=== PATIENT | female | born 1955 | race Hispanic/Latino ===

== ENCOUNTER 2022-09-14 23:36 | Inpatient (IN) | payer MEDICARE ==
[~2022-09-14] VITALS: Ht 152.4 cm; Wt 70.3 kg
[~2022-09-14 23:36] MED LIST: CHOL5POW MC; LACT10SO9 PO
[2022-09-15] MEDS ORDERED: LACTATED RINGERS 1000ML 1,000 ML IV ONE
[2022-09-15] MEDS ORDERED: ONDANSETRON 4MG INJ IVP ONE (00:30)
[2022-09-15] MEDS ORDERED: MORPHINE 2 MG SYG IVP ONE (00:30)
[2022-09-15 00:38] LABS: CARBON DIOXIDE 26 mmol/L (21-32); CHLORIDE 99 mmol/L (101-111); CREATININE 0.6 mg/dL (0.5-1.5); GLOMERULAR FILTR. RATE CALC 106 mL/min (>60); GLUCOSE,RANDOM 121 mg/dL (70-105); POTASSIUM 4.1 mmol/L (3.5-5.1); SODIUM SERUM 133 mmol/L (136-145); UREA NITROGEN, BLOOD 11 mg/dL (7-18)
[2022-09-15 00:40] LABS: APPEARANCE,URINE CLEAR (CLEAR); BASOPHILS % (AUTO) 0.5 % (0.0-5.0); BILIRUBIN,URINE 10 mg/dL (NEGATIVE); COLOR,URINE DARK-YELLOW (YELLOW); EOSINOPHILS % (AUTO) 1.3 % (0.0-8.0); GLUCOSE, URINE (UA) NEGATIVE (NEGATIVE); HEMATOCRIT 32.8 % (36-48); INR 1.62 (0.85-1.15); KETONES,URINE NEGATIVE (NEGATIVE); LEUKOCYTE ESTERASE ,URINE 25 Leu/uL (NEGATIVE); MEAN CORPUSCULAR HGB CONC 34.1 g/dL (32.0-36.0); MEAN CORPUSCULAR VOLUME 87.9 fL (79-99); MONOCYTES % (AUTO) 10.5 % (3.0-13.0); NEUTROPHILS % (AUTO) 74.9 % (40.0-77.0); NITRATE,URINE NEGATIVE (NEGATIVE); OCCULT BLOOD,URINE NEGATIVE (NEGATIVE); PLATELET COUNT (AUTO) 187 K/uL (130-400); PROTEIN,URINE NEGATIVE (NEGATIVE); PROTHROMBIN TIME 17.2 SEC (9.6-11.6); RED BLOOD CELL COUNT(AUTO) 3.73 MIL/uL (4.00-5.50); RED CELL DISTRIBUTION WIDTH 21.2 % (11.0-15.5); UROBILINOGEN,URINE 0.2 mg/dL (0.2-1.0)
[2022-09-15 00:41] LABS: PARTIAL THROMBOPLASTIN TIME 32.4 SEC (26.3-35.5)
[2022-09-15 00:43] LABS: BACTERIA,URINE RARE /HPF (None Seen); RBC,URINE 0-1 /HPF (0-1); SQUAMOUS EPITHELIAL CELL,UR RARE /HPF (0-2)
[2022-09-15 01:00] LABS: ALANINE AMINOTRANSFERASE 241 U/L (12-78); ALBUMIN 2.4 g/dL (3.5-5.0); ASPARTATE AMINOTRANSFERASE 207 U/L (10-37); GAMMA GLUTAMYL TRANSFERASE 521 U/L (5-85); LIPASE 51 U/L (114-286)
[2022-09-15 01:07] LABS: AMMONIA < 10 umol/L (11-32)
[2022-09-15 01:28] LABS: TOTAL PROTEIN, SERUM 6.3 g/dL (6.0-8.3)
[2022-09-15 01:56] LABS: PLATELET MORPHOLOGY PLT CLUMPS PRESENT
[2022-09-15] MEDS ORDERED: NITROGLYCERIN 0.4 MG SL TAB SL PRN (04:00)
[2022-09-15] MEDS ORDERED: ACETAMINOPHEN 325 MG TAB PO PRN (04:00)
[2022-09-15] MEDS ORDERED: GUAIFENESIN-DM 200/20 MG 10 ML PO PRN (04:00)
[2022-09-15] MEDS ORDERED: LACTULOSE 20 GM/30 ML UDCUP PO PRN (04:00)
[2022-09-15] MEDS ORDERED: CEFTRIAXONE 1G VIAL IVP SCH (04:00)
[2022-09-15 05:15] VITALS: BP 105/52
[2022-09-15 08:00] VITALS: BP 156/51
[2022-09-15] MEDS: FAMOTIDINE 20MG VIAL IV SCH ×2 (08:09→22:11)
[2022-09-15] MEDS ORDERED: FAMOTIDINE 20MG VIAL IV SCH (09:00)
[2022-09-15 12:00] VITALS: BP 95/58
[2022-09-15 16:00] VITALS: BP 115/70
[2022-09-15 20:00] VITALS: BP 101/59
[2022-09-16] VITALS (20 sets, daily range): BP systolic 94–114; BP diastolic 50–64
[2022-09-16 06:05] LABS: BASOPHILS % (AUTO) 0.5 % (0.0-5.0); EOSINOPHILS % (AUTO) 1.1 % (0.0-8.0); LYMPHOCYTES % (AUTO) 10.9 % (21.0-51.0); MEAN CORPUSCULAR HEMOGLOBIN 29.7 pg (27.0-33.0); MEAN CORPUSCULAR HGB CONC 32.9 g/dL (32.0-36.0); MEAN CORPUSCULAR VOLUME 90.4 fL (79-99); MONOCYTES % (AUTO) 10.8 % (3.0-13.0); NEUTROPHILS % (AUTO) 75.2 % (40.0-77.0); PLATELET COUNT (AUTO) 162 K/uL (130-400); RED BLOOD CELL COUNT(AUTO) 3.43 MIL/uL (4.00-5.50); RED CELL DISTRIBUTION WIDTH 21.2 % (11.0-15.5); WHITE BLOOD COUNT (AUTO) 9.9 K/uL (4.8-10.8)
[2022-09-16 06:18] LABS: INR 1.55 (0.85-1.15); PROTHROMBIN TIME 16.5 SEC (9.6-11.6)
[2022-09-16 06:34] LABS: ALBUMIN 1.9 g/dL (3.5-5.0); CREATININE 0.5 mg/dL (0.5-1.5); POTASSIUM 3.5 mmol/L (3.5-5.1); TOTAL PROTEIN, SERUM 5.6 g/dL (6.0-8.3)
[2022-09-16] MEDS: FAMOTIDINE 20MG VIAL IV SCH (08:01)
[2022-09-16 09:39] LABS: % IRON SATURATION 17.9 % (22-44)
[2022-09-16] MEDS: 0.9%NACL 1000ML 1,000 ML IV SCH ×2 (11:30→17:26)
[2022-09-16] MEDS: ZOSYN 3.375GM +NS 50ML IVPB SCH ×2 (13:00→20:05)
[2022-09-16] MEDS ORDERED: LIDOCAINE PF 100MG/5ML (2%) SYRINGE 5ML ONE (15:55)
[2022-09-16] MEDS ORDERED: PROPOFOL 10 MG/ML 20ML VIAL IV ONE (15:55)
[2022-09-16] MEDS: PANTOPRAZOLE 40 MG/VIAL IVP SCH (17:26)
[2022-09-17] VITALS: BP 98/54
[2022-09-17 04:00] VITALS: BP 104/54
[2022-09-17] MEDS: ZOSYN 3.375GM +NS 50ML IVPB SCH ×3 (04:59→20:40)
[2022-09-17 06:11] LABS: BASOPHILS % (AUTO) 0.4 % (0.0-5.0); EOSINOPHILS % (AUTO) 1.2 % (0.0-8.0); HEMATOCRIT 30.9 % (36-48); MEAN CORPUSCULAR HEMOGLOBIN 29.7 pg (27.0-33.0); MEAN CORPUSCULAR HGB CONC 32.7 g/dL (32.0-36.0); MEAN CORPUSCULAR VOLUME 90.9 fL (79-99); MONOCYTES % (AUTO) 8.7 % (3.0-13.0); NEUTROPHILS % (AUTO) 75.5 % (40.0-77.0); PLATELET COUNT (AUTO) 177 K/uL (130-400); RED CELL DISTRIBUTION WIDTH 21.2 % (11.0-15.5); WHITE BLOOD COUNT (AUTO) 9.4 K/uL (4.8-10.8)
[2022-09-17 06:52] LABS: ALBUMIN 1.8 g/dL (3.5-5.0); CREATININE 0.5 mg/dL (0.5-1.5); POTASSIUM 3.5 mmol/L (3.5-5.1); TOTAL PROTEIN, SERUM 5.4 g/dL (6.0-8.3)
[2022-09-17] MEDS ORDERED: POTASSIUM CHLORIDE 10% ELIXIR 20 MEQ/15 ML UDCUP PO PRN (07:00)
[2022-09-17 07:30] VITALS: BP 91/54
[2022-09-17] MEDS ORDERED: POTASSIUM CHLORIDE 20MEQ/100ML 100 ML IV PRN (08:00)
[2022-09-17] MEDS ORDERED: MAGNESIUM 2GM PREMIX 50ML 50 ML IV PRN (09:00)
[2022-09-17] MEDS: PANTOPRAZOLE 40 MG/VIAL IVP SCH (09:39)
[2022-09-17] MEDS: HYDROXYZINE 25 MG TABLET PO PRN (11:26)
[2022-09-17 11:30] VITALS: BP 111/61
[2022-09-17 15:30] VITALS: BP 106/56
[2022-09-17 20:00] VITALS: BP 97/58
[2022-09-17] MEDS ORDERED: MORPHINE 2 MG SYG IVP PRN (23:00)
[2022-09-17] MEDS: KETOROLAC 15MG/ML VIAL (15MG/ML) IM PRN (23:05)
[2022-09-18] VITALS: BP 152/63
[2022-09-18] MEDS: 0.9%NACL 1000ML 1,000 ML IV SCH ×2 (00:30→20:07)
[2022-09-18 04:00] VITALS: BP 122/56
[2022-09-18] MEDS: ZOSYN 3.375GM +NS 50ML IVPB SCH ×3 (05:12→20:07)
[2022-09-18 05:57] LABS: BASOPHILS % (AUTO) 0.4 % (0.0-5.0); EOSINOPHILS % (AUTO) 1.2 % (0.0-8.0); HEMATOCRIT 29.6 % (36-48); LYMPHOCYTES % (AUTO) 12.1 % (21.0-51.0); MEAN CORPUSCULAR HEMOGLOBIN 29.4 pg (27.0-33.0); MEAN CORPUSCULAR HGB CONC 33.1 g/dL (32.0-36.0); MEAN CORPUSCULAR VOLUME 88.9 fL (79-99); MONOCYTES % (AUTO) 11.7 % (3.0-13.0); NEUTROPHILS % (AUTO) 73.1 % (40.0-77.0); PLATELET COUNT (AUTO) 164 K/uL (130-400); RED BLOOD CELL COUNT(AUTO) 3.33 MIL/uL (4.00-5.50); RED CELL DISTRIBUTION WIDTH 20.6 % (11.0-15.5); WHITE BLOOD COUNT (AUTO) 7.5 K/uL (4.8-10.8)
[2022-09-18 06:20] LABS: ALBUMIN 1.7 g/dL (3.5-5.0); CREATININE 0.8 mg/dL (0.5-1.5); POTASSIUM 3.5 mmol/L (3.5-5.1); TOTAL PROTEIN, SERUM 5.4 g/dL (6.0-8.3)
[2022-09-18] MEDS: PANTOPRAZOLE 40 MG/VIAL IVP SCH (08:14)
[2022-09-18] MEDS: KETOROLAC 15MG/ML VIAL (15MG/ML) IM PRN (08:14)
[2022-09-18 08:43] VITALS: BP 112/57
[2022-09-18 11:41] VITALS: BP 108/65
[2022-09-18 16:17] VITALS: BP 100/53
[2022-09-18 19:00] VITALS: BP 113/62
[2022-09-18] MEDS: HYDROXYZINE 25 MG TABLET PO PRN (21:32)
[2022-09-18] MEDS: MAG/ALUM/SIMETH 30 ML UDCUP PO PRN (21:32)
[2022-09-19] VITALS (28 sets, daily range): BP systolic 90–141; BP diastolic 47–66
[2022-09-19] MEDS: ZOSYN 3.375GM +NS 50ML IVPB SCH ×3 (04:43→21:00)
[2022-09-19 05:29] LABS: BASOPHILS % (AUTO) 0.3 % (0.0-5.0); HEMATOCRIT 29.2 % (36-48); LYMPHOCYTES % (AUTO) 11.6 % (21.0-51.0); MEAN CORPUSCULAR HGB CONC 33.6 g/dL (32.0-36.0); MEAN CORPUSCULAR VOLUME 89.3 fL (79-99); MONOCYTES % (AUTO) 10.1 % (3.0-13.0); NEUTROPHILS % (AUTO) 75.5 % (40.0-77.0); PLATELET COUNT (AUTO) 169 K/uL (130-400); RED BLOOD CELL COUNT(AUTO) 3.27 MIL/uL (4.00-5.50); RED CELL DISTRIBUTION WIDTH 20.4 % (11.0-15.5); WHITE BLOOD COUNT (AUTO) 8.8 K/uL (4.8-10.8)
[2022-09-19 05:52] LABS: ALBUMIN 1.7 g/dL (3.5-5.0); CREATININE 0.6 mg/dL (0.5-1.5); MAGNESIUM 1.8 mg/dL (1.80-2.40); POTASSIUM 3.3 mmol/L (3.5-5.1); TOTAL PROTEIN, SERUM 5.2 g/dL (6.0-8.3)
[2022-09-19] MEDS: LIDOCAINE HCL-MPF 1% 2ML VIAL IV PRN ×2 (06:41→10:14)
[2022-09-19] MEDS: 0.9%NACL 1000ML 1,000 ML IV SCH ×2 (07:00→11:30)
[2022-09-19] MEDS ORDERED: POTASSIUM CHLORIDE 20 MEQ/100 ML BAG IV SCH (09:00)
[2022-09-19] MEDS: PANTOPRAZOLE 40 MG/VIAL IVP SCH (10:05)
[2022-09-19] MEDS ORDERED: PROPOFOL 10 MG/ML 20ML VIAL IV ONE (12:18)
[2022-09-19] MEDS ORDERED: LIDOCAINE PF 100MG/5ML (2%) SYRINGE 5ML ONE (12:19)
[2022-09-19] MEDS: MAGNESIUM 2GM PREMIX 50ML 50 ML IV SCH (17:14)
[2022-09-19] MEDS: MAG/ALUM/SIMETH 30 ML UDCUP PO PRN (23:03)
[2022-09-20 04:00] VITALS: BP 92/48
[2022-09-20 05:11] LABS: BASOPHILS % (AUTO) 0.2 % (0.0-5.0); EOSINOPHILS % (AUTO) 1.5 % (0.0-8.0); HEMATOCRIT 30.2 % (36-48); LYMPHOCYTES % (AUTO) 13.3 % (21.0-51.0); MEAN CORPUSCULAR HGB CONC 32.8 g/dL (32.0-36.0); MEAN CORPUSCULAR VOLUME 91.5 fL (79-99); MONOCYTES % (AUTO) 10.9 % (3.0-13.0); NEUTROPHILS % (AUTO) 72.7 % (40.0-77.0); PLATELET COUNT (AUTO) 179 K/uL (130-400); RED CELL DISTRIBUTION WIDTH 19.9 % (11.0-15.5); WHITE BLOOD COUNT (AUTO) 8.8 K/uL (4.8-10.8)
[2022-09-20] MEDS: ZOSYN 3.375GM +NS 50ML IVPB SCH ×3 (05:16→21:06)
[2022-09-20 05:34] LABS: ALBUMIN 1.7 g/dL (3.5-5.0); CREATININE 0.6 mg/dL (0.5-1.5); MAGNESIUM 2.5 mg/dL (1.80-2.40); POTASSIUM 3.6 mmol/L (3.5-5.1); TOTAL PROTEIN, SERUM 5.3 g/dL (6.0-8.3)
[2022-09-20] MEDS: PANTOPRAZOLE 40 MG/VIAL IVP SCH (07:45)
[2022-09-20 08:00] VITALS: BP 101/53
[2022-09-20] MEDS ORDERED: LIDOCAINE HCL 1% 20 ML VIAL ONE (12:36)
[2022-09-20 16:00] VITALS: BP 104/47
[2022-09-20 20:26] VITALS: BP 106/60
[2022-09-20] MEDS: MAG/ALUM/SIMETH 30 ML UDCUP PO PRN (21:06)
[2022-09-20] MEDS: KCL 20 MEQ ERTAB PO PRN ×2 (21:13→23:20)
[2022-09-20] MEDS: 0.9%NACL 1000ML 1,000 ML IV SCH (23:20)
[2022-09-20 23:25] VITALS: BP 123/61
[2022-09-21 04:12] VITALS: BP 105/53
[2022-09-21] MEDS: ZOSYN 3.375GM +NS 50ML IVPB SCH ×3 (04:43→20:17)
[2022-09-21 06:17] LABS: BASOPHILS % (AUTO) 0.5 % (0.0-5.0); EOSINOPHILS % (AUTO) 0.8 % (0.0-8.0); HEMATOCRIT 30.5 % (36-48); LYMPHOCYTES % (AUTO) 16.3 % (21.0-51.0); MEAN CORPUSCULAR HEMOGLOBIN 29.9 pg (27.0-33.0); MEAN CORPUSCULAR HGB CONC 32.8 g/dL (32.0-36.0); MEAN CORPUSCULAR VOLUME 91.3 fL (79-99); MONOCYTES % (AUTO) 10.1 % (3.0-13.0); NEUTROPHILS % (AUTO) 70.8 % (40.0-77.0); PLATELET COUNT (AUTO) 176 K/uL (130-400); RED BLOOD CELL COUNT(AUTO) 3.34 MIL/uL (4.00-5.50); RED CELL DISTRIBUTION WIDTH 19.8 % (11.0-15.5); WHITE BLOOD COUNT (AUTO) 8.6 K/uL (4.8-10.8)
[2022-09-21 06:26] LABS: INR 1.25 (0.85-1.15); PROTHROMBIN TIME 13.5 SEC (9.6-11.6)
[2022-09-21 06:27] LABS: PARTIAL THROMBOPLASTIN TIME 29.1 SEC (26.3-35.5)
[2022-09-21 06:34] LABS: POTASSIUM 4.1 mmol/L (3.5-5.1)
[2022-09-21 06:53] LABS: ALBUMIN 1.7 g/dL (3.5-5.0); CREATININE 0.5 mg/dL (0.5-1.5); MAGNESIUM 2.1 mg/dL (1.80-2.40); TOTAL PROTEIN, SERUM 5.4 g/dL (6.0-8.3)
[2022-09-21 07:00] VITALS: BP 118/52
[2022-09-21] MEDS: 0.9%NACL 1000ML 1,000 ML IV SCH (07:00)
[2022-09-21] MEDS ORDERED: IOHEXOL-350 50ML VIAL IV ONE (07:32)
[2022-09-21] MEDS ORDERED: PROPOFOL 10 MG/ML 20ML VIAL IV ONE (08:12)
[2022-09-21] MEDS ORDERED: EPINEPHRINE PF 1MG (1:1,000) 1 MG/ML AMP ONE (08:33)
[2022-09-21] MEDS: PANTOPRAZOLE 40 MG/VIAL IVP SCH (10:32)
[2022-09-21 12:00] VITALS: BP 118/65
[2022-09-21 16:00] VITALS: BP 125/60
[2022-09-21 20:00] VITALS: BP 113/61
[2022-09-21 23:39] VITALS: BP 101/55
[2022-09-22 04:00] VITALS: BP 99/52
[2022-09-22] MEDS: ZOSYN 3.375GM +NS 50ML IVPB SCH ×3 (04:38→21:07)
[2022-09-22] MEDS: 0.9%NACL 1000ML 1,000 ML IV SCH (04:39)
[2022-09-22 06:04] LABS: BASOPHILS % (AUTO) 0.5 % (0.0-5.0); EOSINOPHILS % (AUTO) 1.2 % (0.0-8.0); HEMATOCRIT 30.5 % (36-48); LYMPHOCYTES % (AUTO) 12.6 % (21.0-51.0); MEAN CORPUSCULAR HEMOGLOBIN 30.5 pg (27.0-33.0); MEAN CORPUSCULAR HGB CONC 33.1 g/dL (32.0-36.0); MEAN CORPUSCULAR VOLUME 92.1 fL (79-99); NEUTROPHILS % (AUTO) 73.3 % (40.0-77.0); PLATELET COUNT (AUTO) 180 K/uL (130-400); RED BLOOD CELL COUNT(AUTO) 3.31 MIL/uL (4.00-5.50); RED CELL DISTRIBUTION WIDTH 19.6 % (11.0-15.5); WHITE BLOOD COUNT (AUTO) 8.4 K/uL (4.8-10.8)
[2022-09-22 06:42] LABS: ALBUMIN 1.6 g/dL (3.5-5.0); CREATININE 0.6 mg/dL (0.5-1.5); POTASSIUM 3.7 mmol/L (3.5-5.1); TOTAL PROTEIN, SERUM 5.3 g/dL (6.0-8.3)
[2022-09-22] MEDS: KCL 20 MEQ ERTAB PO PRN ×2 (06:57→12:31)
[2022-09-22 08:00] VITALS: BP 118/55
[2022-09-22] MEDS: PANTOPRAZOLE 40 MG/VIAL IVP SCH (09:08)
[2022-09-22 12:00] VITALS: BP 101/56
[2022-09-22 16:00] VITALS: BP 110/60
[2022-09-22 19:00] VITALS: BP 116/64
[2022-09-22] MEDS: MAG/ALUM/SIMETH 30 ML UDCUP PO PRN (21:14)
[2022-09-23] VITALS: BP 109/55
[2022-09-23] MEDS: ZOSYN 3.375GM +NS 50ML IVPB SCH ×3 (03:16→20:26)
[2022-09-23 04:00] VITALS: BP 103/46
[2022-09-23 05:28] LABS: BASOPHILS % (AUTO) 0.4 % (0.0-5.0); EOSINOPHILS % (AUTO) 1.2 % (0.0-8.0); HEMATOCRIT 30.3 % (36-48); LYMPHOCYTES % (AUTO) 15.4 % (21.0-51.0); MEAN CORPUSCULAR HEMOGLOBIN 30.3 pg (27.0-33.0); MEAN CORPUSCULAR VOLUME 91.8 fL (79-99); MONOCYTES % (AUTO) 11.6 % (3.0-13.0); NEUTROPHILS % (AUTO) 69.9 % (40.0-77.0); PLATELET COUNT (AUTO) 179 K/uL (130-400); RED CELL DISTRIBUTION WIDTH 19.2 % (11.0-15.5); WHITE BLOOD COUNT (AUTO) 9.1 K/uL (4.8-10.8)
[2022-09-23 05:56] LABS: ALBUMIN 1.7 g/dL (3.5-5.0); CREATININE 0.6 mg/dL (0.5-1.5); MAGNESIUM 1.9 mg/dL (1.80-2.40); POTASSIUM 3.6 mmol/L (3.5-5.1); TOTAL PROTEIN, SERUM 5.3 g/dL (6.0-8.3)
[2022-09-23] MEDS: KCL 20 MEQ ERTAB PO PRN ×2 (06:30→20:26)
[2022-09-23] MEDS: MAGNESIUM 2GM PREMIX 50ML 50 ML IV SCH (06:31)
[2022-09-23 08:00] VITALS: BP 98/51
[2022-09-23] MEDS: PANTOPRAZOLE 40 MG/VIAL IVP SCH (09:40)
[2022-09-23 20:00] VITALS: BP 112/61
[2022-09-23] MEDS: 0.9%NACL 1000ML 1,000 ML IV SCH (20:26)
[2022-09-23 21:15] VITALS: BP_SYST 112; BP_SYST 148; BP_DIAS 61; BP_DIAS 88
[2022-09-23] MEDS: MAG/ALUM/SIMETH 30 ML UDCUP PO PRN (21:51)
[2022-09-24] VITALS (9 sets, daily range): BP systolic 100–162; BP diastolic 51–86
[2022-09-24] MEDS: ZOSYN 3.375GM +NS 50ML IVPB SCH ×3 (03:39→20:23)
[2022-09-24 06:40] LABS: BASOPHILS % (AUTO) 0.5 % (0.0-5.0); EOSINOPHILS % (AUTO) 0.9 % (0.0-8.0); HEMATOCRIT 32.1 % (36-48); LYMPHOCYTES % (AUTO) 15.7 % (21.0-51.0); MEAN CORPUSCULAR HEMOGLOBIN 30.3 pg (27.0-33.0); MEAN CORPUSCULAR HGB CONC 32.7 g/dL (32.0-36.0); MEAN CORPUSCULAR VOLUME 92.5 fL (79-99); MONOCYTES % (AUTO) 9.4 % (3.0-13.0); NEUTROPHILS % (AUTO) 71.6 % (40.0-77.0); PLATELET COUNT (AUTO) 187 K/uL (130-400); RED BLOOD CELL COUNT(AUTO) 3.47 MIL/uL (4.00-5.50); RED CELL DISTRIBUTION WIDTH 19.2 % (11.0-15.5); WHITE BLOOD COUNT (AUTO) 11.2 K/uL (4.8-10.8)
[2022-09-24 06:50] LABS: INR 1.28 (0.85-1.15); PROTHROMBIN TIME 13.8 SEC (9.6-11.6)
[2022-09-24 06:51] LABS: PARTIAL THROMBOPLASTIN TIME 29.9 SEC (26.3-35.5)
[2022-09-24 07:02] LABS: CREATININE 0.6 mg/dL (0.5-1.5); MAGNESIUM 2.2 mg/dL (1.80-2.40); POTASSIUM 4.2 mmol/L (3.5-5.1)
[2022-09-24] MEDS ORDERED: IOHEXOL-350 50ML VIAL IV ONE ×2 (08:44→14:03)
[2022-09-24] MEDS: PANTOPRAZOLE 40 MG/VIAL IVP SCH (08:48)
[2022-09-24] MEDS ORDERED: ONDANSETRON 4MG INJ ONE ×2 (11:12→12:50)
[2022-09-24] MEDS ORDERED: ONDANSETRON 4MG INJ IVP PRN (11:30)
[2022-09-24 11:59] LABS: ALBUMIN 1.8 g/dL (3.5-5.0); TOTAL PROTEIN, SERUM 5.8 g/dL (6.0-8.3)
[2022-09-24] MEDS: 0.9%NACL 1000ML 1,000 ML IV SCH (12:00)
[2022-09-24 12:41] LABS: BILIRUBIN,DIRECT 18.5 mg/dL (0.0-0.3)
[2022-09-24] MEDS ORDERED: PROPOFOL 10 MG/ML 20ML VIAL IV ONE (12:49)
[2022-09-24] MEDS ORDERED: SUCCINYLCHOLINE 200MG/10ML SYR ONE (12:50)
[2022-09-24] MEDS ORDERED: FENTANYL CITRATE PF 50 MCG/1 ML 2ML VIAL ONE (12:50)
[2022-09-24] MEDS ORDERED: GLUCAGON 1MG KIT 1 MG ML ONE ×2 (13:06→13:17)
[2022-09-24] MEDS ORDERED: EPINEPHRINE PF 1MG (1:1,000) 1 MG/ML AMP ONE (13:47)
[2022-09-24] MEDS: CHOLESTYRAMINE PACKET 4 GM PACKET PO SCH (20:23)
[2022-09-25 03:52] VITALS: BP 100/50
[2022-09-25] MEDS: ZOSYN 3.375GM +NS 50ML IVPB SCH ×2 (04:45→13:27)
[2022-09-25 05:40] LABS: HEMATOCRIT 31.7 % (36-48); MEAN CORPUSCULAR HEMOGLOBIN 30.3 pg (27.0-33.0); MEAN CORPUSCULAR HGB CONC 32.5 g/dL (32.0-36.0); MEAN CORPUSCULAR VOLUME 93.2 fL (79-99); RED BLOOD CELL COUNT(AUTO) 3.4 MIL/uL (4.00-5.50); WHITE BLOOD COUNT (AUTO) 10.7 K/uL (4.8-10.8)
[2022-09-25 06:16] LABS: ALBUMIN 1.6 g/dL (3.5-5.0); CREATININE 0.6 mg/dL (0.5-1.5); POTASSIUM 3.9 mmol/L (3.5-5.1); TOTAL PROTEIN, SERUM 5.2 g/dL (6.0-8.3)
[2022-09-25] MEDS: 0.9%NACL 1000ML 1,000 ML IV SCH (06:44)
[2022-09-25 08:00] VITALS: BP 100/52
[2022-09-25] MEDS: CHOLESTYRAMINE PACKET 4 GM PACKET PO SCH (10:22)
[2022-09-25] MEDS: PANTOPRAZOLE 40 MG/VIAL IVP SCH (10:23)
[2022-09-25 12:00] VITALS: BP 99/50
[2022-09-25] MEDS ORDERED: PANT40TA54 PO (13:06)
[2022-09-25] MEDS ORDERED: LEVO-70 PO (13:06)
[2022-09-25] MEDS ORDERED: METR-172 PO (13:06)
[2022-09-25 15:10] VITALS: BP 99/54
== END 2022-09-25 16:57 | disposition home or self-care (01) | DRG 871 ==
LOC: EDH 23:36 → EDHIP 09-15 03:31 → 3BH 09-15 05:15
PROVIDERS: ADMIT Internal Medicine; ATTEND Internal Medicine
PROC: 0DJ08ZZ Inspection of Upper Intestinal Tract, Via Natural or Artificial Opening Endoscopic (ICD-10-PCS; principal; 2022-09-16)
DX: A41.9 Sepsis, unspecified organism (principal); E43 Unspecified severe protein-calorie malnutrition; K72.00 Acute and subacute hepatic failure without coma; K83.1 Obstruction of bile duct; N39.0 Urinary tract infection, site not specified; C22.1 Intrahepatic bile duct carcinoma; C16.9 Malignant neoplasm of stomach, unspecified; C18.9 Malignant neoplasm of colon, unspecified; Z20.822 Contact with and (suspected) exposure to COVID-19; E78.5 Hyperlipidemia, unspecified; K57.90 Diverticulosis of intestine, part unspecified, without perforation or abscess without bleeding; R12 Heartburn; L29.9 Pruritus, unspecified; D64.9 Anemia, unspecified; E66.9 Obesity, unspecified; R53.81 Other malaise; M19.90 Unspecified osteoarthritis, unspecified site; K44.9 Diaphragmatic hernia without obstruction or gangrene; M81.0 Age-related osteoporosis without current pathological fracture; Z74.01 Bed confinement status; Z68.31 Body mass index [BMI] 31.0-31.9, adult; Z82.49 Family history of ischemic heart disease and other diseases of the circulatory system; Z85.09 Personal history of malignant neoplasm of other digestive organs; Z83.3 Family history of diabetes mellitus; Z85.05 Personal history of malignant neoplasm of liver; Z88.1 Allergy status to other antibiotic agents; Z92.21 Personal history of antineoplastic chemotherapy; Z92.3 Personal history of irradiation
CPT/HCPCS: 36415; 43235; 43237; 43262; 43274; 47000; 74176; 74181; 74328; 74330; 76942; 80048; 80053; 80076; 81001; 82140; 82378; 82977; 83540; 83550; 83690; 83735; 84145; 84484; 85025; 85027; 85610; 85730; 86316; 86677; 87088; 87426; A4606; C1769; C2617; C2625; C9113; G0378; J0171; J0330; J0696; J1610; J1885; J2001; J2405; J2543; J2704; J3010; J3475; J3480; J3490; J7030; Q9967

== ENCOUNTER 2022-10-05 09:30 | Day surgery (SDC) | payer MEDICARE ==
[2022-10-05] VITALS (11 sets, daily range): BP systolic 119–135; BP diastolic 61–67
[~2022-10-05] VITALS: Ht 152.4 cm; Wt 67.6 kg
[~2022-10-05 09:30] MED LIST changes: -LACT10SO9 PO; +LEVO-70 PO; +METR-172 PO; +PANT40TA54 PO
[2022-10-05] MEDS ORDERED: 0.9%NACL 1000ML 1,000 ML IV ONE (10:49)
[2022-10-05] MEDS ORDERED: IOHEXOL-350 50ML VIAL IV ONE (11:10)
[2022-10-05] MEDS ORDERED: PROPOFOL 10 MG/ML 20ML VIAL IV ONE (12:03)
[2022-10-05] MEDS ORDERED: FENTANYL CITRATE PF 50 MCG/1 ML 2ML VIAL ONE (12:04)
[2022-10-05] MEDS ORDERED: GLUCAGON 1MG KIT 1 MG ML ONE (12:31)
== END 2022-10-05 15:13 | disposition home or self-care (01) ==
LOC: DAH 09:30
PROVIDERS: ATTEND Internal Medicine Gastroenterology
DX: Z46.59 Encounter for fitting and adjustment of other gastrointestinal appliance and device (principal); Z20.822 Contact with and (suspected) exposure to COVID-19; R93.2 Abnormal findings on diagnostic imaging of liver and biliary tract; K83.1 Obstruction of bile duct; K83.8 Other specified diseases of biliary tract; K72.90 Hepatic failure, unspecified without coma; L29.9 Pruritus, unspecified; M81.0 Age-related osteoporosis without current pathological fracture; E78.00 Pure hypercholesterolemia, unspecified; Z90.49 Acquired absence of other specified parts of digestive tract; Z98.890 Other specified postprocedural states; Z80.0 Family history of malignant neoplasm of digestive organs; Z88.3 Allergy status to other anti-infective agents; Z85.05 Personal history of malignant neoplasm of liver; Z86.19 Personal history of other infectious and parasitic diseases
CPT/HCPCS: 43276; 87635; 74328; 43273; J3010; J7030; J1610; J2704; Q9967; A4649; A4215; A4223; A4657 ×2; A7002; A4222; A4221; A4663; C1877; C1769; 74330

== ENCOUNTER 2022-11-08 11:06 | Inpatient (IN) | payer MEDICARE ==
[~2022-11-08] VITALS: Ht 152.4 cm; Wt 73.2 kg
[2022-11-08] VITALS (31 sets, daily range): BP systolic 78–102; BP diastolic 44–57
[~2022-11-08 11:06] MED LIST changes: -LEVO-70 PO
[2022-11-08] MEDS ORDERED: 0.9%NACL 1000ML 1,000 ML IV ONE (11:30)
[2022-11-08 11:44] LABS: BASOPHILS % (AUTO) 0.3 % (0.0-5.0); EOSINOPHILS % (AUTO) 0.6 % (0.0-8.0); HEMATOCRIT 33.1 % (36-48); LYMPHOCYTES % (AUTO) 2.4 % (21.0-51.0); MEAN CORPUSCULAR HGB CONC 33.2 g/dL (32.0-36.0); MEAN CORPUSCULAR VOLUME 87.3 fL (79-99); MONOCYTES % (AUTO) 6.6 % (3.0-13.0); PLATELET COUNT (AUTO) 104 K/uL (130-400); RED BLOOD CELL COUNT(AUTO) 3.79 MIL/uL (4.00-5.50); RED CELL DISTRIBUTION WIDTH 14.3 % (11.0-15.5); WHITE BLOOD COUNT (AUTO) 22.7 K/uL (4.8-10.8)
[2022-11-08 11:46] LABS: APPEARANCE,URINE CLOUDY (CLEAR); BILIRUBIN,URINE 3 mg/dL (NEGATIVE); COLOR,URINE DARK-YELLOW (YELLOW); GLUCOSE, URINE (UA) NEGATIVE (NEGATIVE); KETONES,URINE NEGATIVE (NEGATIVE); LEUKOCYTE ESTERASE ,URINE 500 Leu/uL (NEGATIVE); NITRATE,URINE NEGATIVE (NEGATIVE); PH,URINE 5.5 (5.0-8.0); PROTEIN,URINE 30 mg/dL (NEGATIVE); UROBILINOGEN,URINE 0.2 mg/dL (0.2-1.0)
[2022-11-08 11:51] LABS: BACTERIA,URINE FEW /HPF (None Seen); MUCUS,URINE RARE LPF (None Seen); SQUAMOUS EPITHELIAL CELL,UR MOD /HPF (0-2); WBC,URINE 51-100 /HPF (0-1)
[2022-11-08 12:05] LABS: ALANINE AMINOTRANSFERASE 280 U/L (12-78); ALBUMIN 2.3 g/dL (3.5-5.0); ASPARTATE AMINOTRANSFERASE 444 U/L (10-37); CARBON DIOXIDE 19 mmol/L (21-32); CHLORIDE 93 mmol/L (101-111); CREATININE 1.9 mg/dL (0.5-1.5); GLOMERULAR FILTR. RATE CALC 29 mL/min (>90); GLUCOSE,RANDOM 221 mg/dL (70-105); POTASSIUM 3.9 mmol/L (3.5-5.1); SODIUM SERUM 128 mmol/L (136-145); TOTAL PROTEIN, SERUM 6.9 g/dL (6.0-8.3); UREA NITROGEN, BLOOD 42 mg/dL (7-18)
[2022-11-08 12:06] LABS: AMMONIA < 10 umol/L (11-32); LIPASE < 50 U/L (114-286)
[2022-11-08] MEDS ORDERED: CEFTRIAXONE 1G VIAL IVPB ONE (13:00)
[2022-11-08] MEDS ORDERED: METRONIDAZOLE 500MG/100ML BAG 100 ML ONE (14:09)
[2022-11-08] MEDS: METRONIDAZOLE 500MG/100ML BAG 100 ML IVPB SCH (14:10)
[2022-11-08] MEDS ORDERED: NOREPINEPHRIN 4MG/NS 250ML 250 ML IV ONE (14:31)
[2022-11-08] MEDS ORDERED: ACETAMINOPHEN 325 MG TAB PO PRN (15:00)
[2022-11-08] MEDS ORDERED: VANCOMYCIN 1G/250ML KIT 250 ML IV SCH (15:00)
[2022-11-08] MEDS ORDERED: SODIUM CHLORIDE 3% FOR INHALATION 4 ML/AMP VIAL.NEB IH ONE (15:01)
[2022-11-08] MEDS ORDERED: ALBUMIN (HUMAN) 25% 50 ML IV ONE (15:02)
[2022-11-08 15:14] LABS: ABG BASE EXCESS -2.7 mmol/L (-2.0-3.0); ABG HCO3 19.7 mmol/L (21.0-28.0); ABG OXYGEN SATURATION 94.4 % (95.0-99.0); ABG PCO2 28 mmHg (32-45)
[2022-11-08] MEDS ORDERED: VANCOMYCIN PROTOCOL PER PHARMACY IV SCH (15:30)
[2022-11-08] MEDS: 0.9%NACL 1000ML 1,000 ML IV SCH ×2 (15:37→23:48)
[2022-11-08] MEDS: FAMOTIDINE 20MG VIAL IV SCH (15:39)
[2022-11-08 15:41] LABS: AMYLASE 10 U/L (25-115)
[2022-11-08 15:42] LABS: LIPASE < 50 U/L (114-286)
[2022-11-08 16:13] LABS: % IRON SATURATION 2.8 % (22-44)
[2022-11-08] MEDS: MEROPENEM 500 MG VIAL IV SCH ×2 (16:46→23:47)
[2022-11-08] MEDS ORDERED: IPRATROPIUM 0.5 MG/2.5 ML INH IH SCH (18:00)
[2022-11-08] MEDS ORDERED: IPRATROPIUM 0.5 MG/2.5 ML INH IH PRN (18:00)
[2022-11-08 19:50] LABS: INR 1.37 (0.85-1.15); PROTHROMBIN TIME 14.7 SEC (9.6-11.6)
[2022-11-08 19:51] LABS: PARTIAL THROMBOPLASTIN TIME 34.8 SEC (26.3-35.5)
[2022-11-08] MEDS ORDERED: HEPARIN 5,000 UNIT VIAL SQ SCH (21:00)
[2022-11-09] VITALS (77 sets, daily range): BP systolic 35–133; BP diastolic 24–69
[2022-11-09] MEDS ORDERED: NOREPINEPHRIN 4MG/NS 250ML 250 ML IV ONE (00:38)
[2022-11-09 03:54] LABS: HEMATOCRIT 32.7 % (36-48); MEAN CORPUSCULAR VOLUME 87.9 fL (79-99); RED BLOOD CELL COUNT(AUTO) 3.72 MIL/uL (4.00-5.50); RED CELL DISTRIBUTION WIDTH 14.5 % (11.0-15.5); WHITE BLOOD COUNT (AUTO) 29.5 K/uL (4.8-10.8)
[2022-11-09 04:12] LABS: ALBUMIN 1.7 g/dL (3.5-5.0); CREATININE 1.4 mg/dL (0.5-1.5); POTASSIUM 3.4 mmol/L (3.5-5.1); TOTAL PROTEIN, SERUM 5.7 g/dL (6.0-8.3)
[2022-11-09 04:13] LABS: BILIRUBIN,DIRECT 12.3 mg/dL (0.0-0.3)
[2022-11-09 04:38] LABS: HEMOGLOBIN A1C 5.4 % (4.0-6.0)
[2022-11-09] MEDS: METRONIDAZOLE 500MG/100ML BAG 100 ML IVPB SCH ×3 (04:54→22:11)
[2022-11-09] MEDS: MEROPENEM 500 MG VIAL IV SCH (05:48)
[2022-11-09] MEDS ORDERED: PHENYLEPHRINE HCL 10 MG/ML 1ML VIAL IV ONE (07:05)
[2022-11-09] MEDS ORDERED: SUCCINYLCHOLINE 200MG/10ML SYR ONE (07:06)
[2022-11-09] MEDS ORDERED: PROPOFOL 10 MG/ML 20ML VIAL IV ONE (07:07)
[2022-11-09] MEDS ORDERED: IOHEXOL-350 50ML VIAL IV ONE (07:34)
[2022-11-09] MEDS ORDERED: GLUCAGON 1MG KIT 1 MG ML ONE (08:28)
[2022-11-09] MEDS: FAMOTIDINE 20MG VIAL IV SCH (10:52)
[2022-11-09] MEDS: 0.9%NACL 1000ML 1,000 ML IV SCH ×2 (11:13→22:11)
[2022-11-09] MEDS ORDERED: FENTANYL CITRATE PF 50 MCG/1 ML 2ML VIAL ONE (13:51)
[2022-11-09] MEDS ORDERED: MIDAZOLAM HCL 1 MG/ML 2ML VIAL ONE (13:51)
[2022-11-09] MEDS: MEROPENEM 1 GM VIAL IVPB SCH ×2 (15:47→22:12)
[2022-11-09] MEDS: NOREPINEPHRIN 4MG/NS 250ML 250 ML IV PRN (17:25)
[2022-11-09] MEDS: LINEZOLID 600 MG/ISO-OSM 300 ML IV SCH (18:04)
[2022-11-09] MEDS ORDERED: LACTULOSE 20 GM/30 ML UDCUP PO PRN (19:30)
[2022-11-09] MEDS: HYDROMORPHONE 0.5 MG SYG (0.5MG/0.5ML) IVP PRN (19:43)
[2022-11-09] MEDS ORDERED: ALBUMIN (HUMAN) 25% 50 ML IV ONE (22:56)
[2022-11-09] MEDS: ALBUMIN (HUMAN) 25% 50 ML IV SCH (23:22)
[2022-11-10] VITALS (67 sets, daily range): BP systolic 90–144; BP diastolic 34–78
[2022-11-10] MEDS: LINEZOLID 600 MG/ISO-OSM 300 ML IV SCH ×2 (02:09→13:15)
[2022-11-10 04:17] LABS: BASOPHILS % (AUTO) 0.2 % (0.0-5.0); EOSINOPHILS % (AUTO) 0.1 % (0.0-8.0); HEMATOCRIT 29.8 % (36-48); LYMPHOCYTES % (AUTO) 6.6 % (21.0-51.0); MEAN CORPUSCULAR HEMOGLOBIN 29.2 pg (27.0-33.0); MEAN CORPUSCULAR HGB CONC 33.9 g/dL (32.0-36.0); MEAN CORPUSCULAR VOLUME 86.1 fL (79-99); MONOCYTES % (AUTO) 8.6 % (3.0-13.0); NEUTROPHILS % (AUTO) 82.5 % (40.0-77.0); PLATELET COUNT (AUTO) 86 K/uL (130-400); RED BLOOD CELL COUNT(AUTO) 3.46 MIL/uL (4.00-5.50); RED CELL DISTRIBUTION WIDTH 14.6 % (11.0-15.5); WHITE BLOOD COUNT (AUTO) 17.3 K/uL (4.8-10.8)
[2022-11-10] MEDS: NOREPINEPHRIN 4MG/NS 250ML 250 ML IV PRN (04:29)
[2022-11-10 04:30] LABS: CREATININE 1.2 mg/dL (0.5-1.5); POTASSIUM 3.2 mmol/L (3.5-5.1)
[2022-11-10] MEDS: HYDROMORPHONE 0.5 MG SYG (0.5MG/0.5ML) IVP PRN (04:43)
[2022-11-10] MEDS ORDERED: POTASSIUM CHLORIDE 10% ELIXIR 20 MEQ/15 ML UDCUP ONE (05:07)
[2022-11-10] MEDS: ALBUMIN (HUMAN) 25% 50 ML IV SCH ×3 (05:08→17:57)
[2022-11-10] MEDS: MEROPENEM 1 GM VIAL IVPB SCH ×3 (05:08→21:26)
[2022-11-10] MEDS: 0.9%NACL 1000ML 1,000 ML IV SCH (05:08)
[2022-11-10] MEDS: METRONIDAZOLE 500MG/100ML BAG 100 ML IVPB SCH ×3 (05:09→21:26)
[2022-11-10] MEDS ORDERED: POTASSIUM CHLORIDE 10% ELIXIR 20 MEQ/15 ML UDCUP PO ONE (05:30)
[2022-11-10] MEDS: FAMOTIDINE 20MG VIAL IV SCH (07:57)
[2022-11-10] MEDS: SODIUM BICARBONATE 650 MG TAB PO SCH ×2 (07:58→20:47)
[2022-11-10] MEDS: LACTULOSE 20 GM/30 ML UDCUP PO SCH ×2 (07:58→21:00)
[2022-11-10] MEDS ORDERED: SODIUM BICARB 50MEQ 50ML VIAL IV SCH (08:00)
[2022-11-10] MEDS ORDERED: FLUCONAZOLE 200 MG/NS 100 ML 100 ML ONE (08:59)
[2022-11-10] MEDS: FLUCONAZOLE 200 MG/NS 100 ML 100 ML IV SCH (09:00)
[2022-11-10] MEDS: GUAIFENESIN-CODEINE 5 ML SYRUP PO PRN (10:09)
[2022-11-10] MEDS ORDERED: POTASSIUM CHLORIDE 20 MEQ/100 ML BAG IV SCH (10:30)
[2022-11-10 10:50] LABS: ALBUMIN 1.9 g/dL (3.5-5.0); TOTAL PROTEIN, SERUM 5.3 g/dL (6.0-8.3)
[2022-11-10] MEDS: MAGNESIUM 2GM PREMIX 50ML 50 ML IV PRN (11:06)
[2022-11-10 11:10] LABS: BILIRUBIN,DIRECT 10.5 mg/dL (0.0-0.3)
[2022-11-10] MEDS: ONDANSETRON 4MG INJ IV PRN (13:37)
[2022-11-11] VITALS (16 sets, daily range): BP systolic 106–119; BP diastolic 54–68
[2022-11-11] MEDS: LINEZOLID 600 MG/ISO-OSM 300 ML IV SCH ×2 (02:04→14:28)
[2022-11-11 03:54] LABS: HEMATOCRIT 27.1 % (36-48); MEAN CORPUSCULAR HEMOGLOBIN 28.9 pg (27.0-33.0); MEAN CORPUSCULAR HGB CONC 34.3 g/dL (32.0-36.0); MEAN CORPUSCULAR VOLUME 84.2 fL (79-99); RED BLOOD CELL COUNT(AUTO) 3.22 MIL/uL (4.00-5.50); RED CELL DISTRIBUTION WIDTH 14.6 % (11.0-15.5); WHITE BLOOD COUNT (AUTO) 11.5 K/uL (4.8-10.8)
[2022-11-11 04:12] LABS: ALBUMIN 1.9 g/dL (3.5-5.0); BILIRUBIN,DIRECT 7.1 mg/dL (0.0-0.3); POTASSIUM 3.5 mmol/L (3.5-5.1); TOTAL PROTEIN, SERUM 4.8 g/dL (6.0-8.3)
[2022-11-11] MEDS: METRONIDAZOLE 500MG/100ML BAG 100 ML IVPB SCH ×3 (05:03→22:19)
[2022-11-11] MEDS: MEROPENEM 1 GM VIAL IVPB SCH ×3 (05:03→22:19)
[2022-11-11] MEDS: SODIUM BICARBONATE 650 MG TAB PO SCH ×2 (08:25→20:56)
[2022-11-11] MEDS: LACTULOSE 20 GM/30 ML UDCUP PO SCH ×2 (08:25→21:00)
[2022-11-11] MEDS: FAMOTIDINE 20MG VIAL IV SCH (08:26)
[2022-11-11] MEDS: FLUCONAZOLE 200 MG/NS 100 ML 100 ML IV SCH (09:23)
[2022-11-11] MEDS: POTASSIUM CHLORIDE 10% ELIXIR 20 MEQ/15 ML UDCUP PO PRN ×2 (10:40→12:04)
[2022-11-11] MEDS: GUAIFENESIN-CODEINE 5 ML SYRUP PO PRN (18:45)
[2022-11-11 23:25] LABS: INR 1.36 (0.85-1.15); PROTHROMBIN TIME 14.6 SEC (9.6-11.6)
[2022-11-11 23:26] LABS: PARTIAL THROMBOPLASTIN TIME 35.9 SEC (26.3-35.5)
[2022-11-12 00:06] VITALS: BP 124/65
[2022-11-12] MEDS: LINEZOLID 600 MG/ISO-OSM 300 ML IV SCH ×2 (01:40→14:38)
[2022-11-12 03:06] VITALS: BP 119/66
[2022-11-12 03:52] LABS: HEMATOCRIT 28.4 % (36-48); MEAN CORPUSCULAR HEMOGLOBIN 28.8 pg (27.0-33.0); MEAN CORPUSCULAR HGB CONC 34.2 g/dL (32.0-36.0); MEAN CORPUSCULAR VOLUME 84.3 fL (79-99); RED BLOOD CELL COUNT(AUTO) 3.37 MIL/uL (4.00-5.50); RED CELL DISTRIBUTION WIDTH 14.8 % (11.0-15.5); WHITE BLOOD COUNT (AUTO) 10.5 K/uL (4.8-10.8)
[2022-11-12 04:03] LABS: ALBUMIN 1.7 g/dL (3.5-5.0); BILIRUBIN,DIRECT 5.8 mg/dL (0.0-0.3); MAGNESIUM 1.9 mg/dL (1.80-2.40); POTASSIUM 3.9 mmol/L (3.5-5.1); TOTAL PROTEIN, SERUM 5.1 g/dL (6.0-8.3)
[2022-11-12] MEDS: METRONIDAZOLE 500MG/100ML BAG 100 ML IVPB SCH ×3 (06:23→21:49)
[2022-11-12] MEDS: MEROPENEM 1 GM VIAL IVPB SCH ×3 (06:24→21:49)
[2022-11-12 06:55] LABS: CREATINE KINASE, TOTAL 58 U/L (21-232); MYOGLOBIN 93 ng/mL (10-92)
[2022-11-12 07:17] VITALS: BP 122/63
[2022-11-12] MEDS: FAMOTIDINE 20MG VIAL IV SCH (08:41)
[2022-11-12] MEDS: LACTULOSE 20 GM/30 ML UDCUP PO SCH ×2 (08:42→21:00)
[2022-11-12] MEDS: SODIUM BICARBONATE 650 MG TAB PO SCH ×2 (08:42→21:49)
[2022-11-12] MEDS: FLUCONAZOLE 200 MG/NS 100 ML 100 ML IV SCH (08:42)
[2022-11-12 11:11] VITALS: BP 112/59
[2022-11-12] MEDS: ONDANSETRON 4MG INJ IV PRN (11:34)
[2022-11-12 15:43] VITALS: BP 120/69
[2022-11-12] MEDS: ALBUTEROL 0.083% 2.5 MG/3 ML INH IH SCH ×2 (18:00→22:00)
[2022-11-12 19:50] VITALS: BP 133/70
[2022-11-13 00:02] VITALS: BP 132/68
[2022-11-13] MEDS: ALBUTEROL 0.083% 2.5 MG/3 ML INH IH SCH ×6 (02:00→22:00)
[2022-11-13] MEDS: LINEZOLID 600 MG/ISO-OSM 300 ML IV SCH ×2 (02:51→13:14)
[2022-11-13 03:30] VITALS: BP 130/79
[2022-11-13] MEDS: MEROPENEM 1 GM VIAL IVPB SCH ×3 (05:43→22:20)
[2022-11-13] MEDS: METRONIDAZOLE 500MG/100ML BAG 100 ML IVPB SCH ×3 (05:44→23:30)
[2022-11-13 07:15] VITALS: BP 125/67
[2022-11-13] MEDS: LACTULOSE 20 GM/30 ML UDCUP PO SCH ×2 (09:00→21:00)
[2022-11-13] MEDS: FLUCONAZOLE 200 MG/NS 100 ML 100 ML IV SCH (09:41)
[2022-11-13] MEDS: FAMOTIDINE 20MG VIAL IV SCH (09:41)
[2022-11-13] MEDS: SODIUM BICARBONATE 650 MG TAB PO SCH ×2 (09:42→22:20)
[2022-11-13] MEDS ORDERED: FUROSEMIDE 40MG VIAL IV SCH (10:00)
[2022-11-13] MEDS: ONDANSETRON 4MG INJ IV PRN ×2 (10:27→18:00)
[2022-11-13 11:09] VITALS: BP 124/66
[2022-11-13] MEDS: SIMETHICONE 80 MG TAB.CHEW PO PRN (15:21)
[2022-11-13 16:06] VITALS: BP 118/60
[2022-11-13 20:00] VITALS: BP 126/68
[2022-11-14 01:00] VITALS: BP 110/62
[2022-11-14] MEDS: ALBUTEROL 0.083% 2.5 MG/3 ML INH IH SCH (02:00)
[2022-11-14] MEDS: LINEZOLID 600 MG/ISO-OSM 300 ML IV SCH ×2 (02:44→13:54)
[2022-11-14 03:34] LABS: BASOPHILS % (AUTO) 0.3 % (0.0-5.0); EOSINOPHILS % (AUTO) 1.3 % (0.0-8.0); HEMATOCRIT 27.8 % (36-48); LYMPHOCYTES % (AUTO) 14.2 % (21.0-51.0); MEAN CORPUSCULAR HEMOGLOBIN 28.4 pg (27.0-33.0); MEAN CORPUSCULAR HGB CONC 34.2 g/dL (32.0-36.0); MEAN CORPUSCULAR VOLUME 83.2 fL (79-99); MONOCYTES % (AUTO) 7.8 % (3.0-13.0); NEUTROPHILS % (AUTO) 74.4 % (40.0-77.0); PLATELET COUNT (AUTO) 133 K/uL (130-400); RED BLOOD CELL COUNT(AUTO) 3.34 MIL/uL (4.00-5.50); RED CELL DISTRIBUTION WIDTH 15.2 % (11.0-15.5)
[2022-11-14 03:52] LABS: ALBUMIN 1.7 g/dL (3.5-5.0); CREATININE 0.8 mg/dL (0.5-1.5); MAGNESIUM 1.5 mg/dL (1.80-2.40); PHOSPHORUS 3.3 mg/dL (2.5-4.9); TOTAL PROTEIN, SERUM 5.1 g/dL (6.0-8.3)
[2022-11-14 04:00] VITALS: BP 122/57
[2022-11-14 04:32] LABS: POTASSIUM 2.7 mmol/L (3.5-5.1)
[2022-11-14] MEDS: POTASSIUM CHLORIDE 10% ELIXIR 20 MEQ/15 ML UDCUP PO PRN (04:50)
[2022-11-14] MEDS: MAGNESIUM 2GM PREMIX 50ML 50 ML IV PRN (04:51)
[2022-11-14] MEDS: MEROPENEM 1 GM VIAL IVPB SCH ×3 (05:21→23:51)
[2022-11-14] MEDS ORDERED: POTASSIUM CHLORIDE 10MEQ/100ML 100 ML IV ONE (05:59)
[2022-11-14] MEDS: ONDANSETRON 4MG INJ IV PRN (06:02)
[2022-11-14] MEDS: POTASSIUM CHLORIDE 10MEQ/100ML 100 ML IV PRN (06:04)
[2022-11-14 07:00] VITALS: BP 114/61
[2022-11-14] MEDS: METRONIDAZOLE 500MG/100ML BAG 100 ML IVPB SCH ×3 (07:11→23:51)
[2022-11-14] MEDS: FLUCONAZOLE 200 MG/NS 100 ML 100 ML IV SCH (09:05)
[2022-11-14] MEDS: SODIUM BICARBONATE 650 MG TAB PO SCH ×2 (09:05→20:53)
[2022-11-14] MEDS: FAMOTIDINE 20MG VIAL IV SCH (09:05)
[2022-11-14] MEDS: LACTULOSE 20 GM/30 ML UDCUP PO SCH ×2 (09:05→20:53)
[2022-11-14 11:00] VITALS: BP 110/61
[2022-11-14] MEDS: KCL 20 MEQ ERTAB PO PRN ×3 (11:01→16:08)
[2022-11-14] MEDS: SIMETHICONE 80 MG TAB.CHEW PO PRN (11:13)
[2022-11-14 16:00] VITALS: BP 117/66
[2022-11-14 19:21] VITALS: BP 118/58
[2022-11-15 00:21] VITALS: BP 132/70
[2022-11-15] MEDS: GUAIFENESIN-CODEINE 5 ML SYRUP PO PRN (01:43)
[2022-11-15] MEDS: LINEZOLID 600 MG/ISO-OSM 300 ML IV SCH ×2 (01:43→14:03)
[2022-11-15 03:21] VITALS: BP 114/59
[2022-11-15 04:07] LABS: BASOPHILS % (AUTO) 0.5 % (0.0-5.0); EOSINOPHILS % (AUTO) 1.3 % (0.0-8.0); HEMATOCRIT 27.8 % (36-48); LYMPHOCYTES % (AUTO) 11.1 % (21.0-51.0); MEAN CORPUSCULAR HGB CONC 33.8 g/dL (32.0-36.0); MEAN CORPUSCULAR VOLUME 85.8 fL (79-99); MONOCYTES % (AUTO) 5.9 % (3.0-13.0); NEUTROPHILS % (AUTO) 79.7 % (40.0-77.0); PLATELET COUNT (AUTO) 137 K/uL (130-400); RED BLOOD CELL COUNT(AUTO) 3.24 MIL/uL (4.00-5.50); RED CELL DISTRIBUTION WIDTH 15.6 % (11.0-15.5); WHITE BLOOD COUNT (AUTO) 9.8 K/uL (4.8-10.8)
[2022-11-15 04:22] LABS: ALBUMIN 1.6 g/dL (3.5-5.0); CREATININE 0.8 mg/dL (0.5-1.5); POTASSIUM 3.6 mmol/L (3.5-5.1)
[2022-11-15] MEDS: KCL 20 MEQ ERTAB PO PRN ×2 (06:20→17:02)
[2022-11-15] MEDS: METRONIDAZOLE 500MG/100ML BAG 100 ML IVPB SCH ×3 (06:44→21:48)
[2022-11-15] MEDS: MEROPENEM 1 GM VIAL IVPB SCH ×3 (06:45→21:48)
[2022-11-15 07:00] VITALS: BP 122/68
[2022-11-15] MEDS: LACTULOSE 20 GM/30 ML UDCUP PO SCH ×2 (08:44→20:28)
[2022-11-15] MEDS: FLUCONAZOLE 200 MG/NS 100 ML 100 ML IV SCH (08:44)
[2022-11-15] MEDS: FAMOTIDINE 20MG VIAL IV SCH (08:44)
[2022-11-15] MEDS: SODIUM BICARBONATE 650 MG TAB PO SCH (08:45)
[2022-11-15] MEDS: ONDANSETRON 4MG INJ IV PRN (10:14)
[2022-11-15 11:00] VITALS: BP 114/62
[2022-11-15 15:33] LABS: INR 1.49 (0.85-1.15); PROTHROMBIN TIME 15.9 SEC (9.6-11.6)
[2022-11-15 16:00] VITALS: BP 122/68
[2022-11-15 19:21] VITALS: BP 125/69
[2022-11-16] VITALS (7 sets, daily range): BP systolic 113–135; BP diastolic 62–73
[2022-11-16] MEDS: LINEZOLID 600 MG/ISO-OSM 300 ML IV SCH ×2 (01:41→16:15)
[2022-11-16 03:50] LABS: BASOPHILS % (AUTO) 0.5 % (0.0-5.0); EOSINOPHILS % (AUTO) 1.1 % (0.0-8.0); HEMATOCRIT 27.3 % (36-48); LYMPHOCYTES % (AUTO) 12.7 % (21.0-51.0); MEAN CORPUSCULAR HEMOGLOBIN 29.1 pg (27.0-33.0); MEAN CORPUSCULAR HGB CONC 34.1 g/dL (32.0-36.0); MEAN CORPUSCULAR VOLUME 85.3 fL (79-99); NEUTROPHILS % (AUTO) 78.4 % (40.0-77.0); PLATELET COUNT (AUTO) 144 K/uL (130-400); RED CELL DISTRIBUTION WIDTH 15.9 % (11.0-15.5)
[2022-11-16 04:09] LABS: ALBUMIN 1.6 g/dL (3.5-5.0); CREATININE 0.8 mg/dL (0.5-1.5); POTASSIUM 3.8 mmol/L (3.5-5.1)
[2022-11-16] MEDS: MEROPENEM 1 GM VIAL IVPB SCH ×3 (05:35→21:04)
[2022-11-16] MEDS: METRONIDAZOLE 500MG/100ML BAG 100 ML IVPB SCH ×3 (05:36→21:04)
[2022-11-16] MEDS: ALBUTEROL 0.083% 2.5 MG/3 ML INH IH SCH ×2 (06:00→18:00)
[2022-11-16] MEDS: LACTULOSE 20 GM/30 ML UDCUP PO SCH ×2 (08:12→21:00)
[2022-11-16] MEDS: FAMOTIDINE 20MG VIAL IV SCH (08:36)
[2022-11-16] MEDS: FLUCONAZOLE 200 MG/NS 100 ML 100 ML IV SCH (08:36)
[2022-11-16] MEDS: 0.9%NACL 10ML VIAL IV SCH ×2 (08:37→21:00)
[2022-11-17] MEDS: LINEZOLID 600 MG/ISO-OSM 300 ML IV SCH ×2 (01:52→14:47)
[2022-11-17 03:44] VITALS: BP 123/67
[2022-11-17] MEDS: MEROPENEM 1 GM VIAL IVPB SCH ×3 (05:28→21:51)
[2022-11-17] MEDS: METRONIDAZOLE 500MG/100ML BAG 100 ML IVPB SCH ×3 (05:28→21:51)
[2022-11-17] MEDS: FUROSEMIDE 20 MG TABLET PO SCH ×2 (08:46→19:38)
[2022-11-17] MEDS: FAMOTIDINE 20MG VIAL IV SCH (08:46)
[2022-11-17] MEDS: FLUCONAZOLE 200 MG/NS 100 ML 100 ML IV SCH (08:47)
[2022-11-17] MEDS: LACTULOSE 20 GM/30 ML UDCUP PO SCH ×3 (08:53→19:43)
[2022-11-17] MEDS: 0.9%NACL 10ML VIAL IV SCH ×2 (08:53→19:39)
[2022-11-17 08:57] VITALS: BP 104/53
[2022-11-17] MEDS: ONDANSETRON 4MG INJ IV PRN ×2 (09:23→16:50)
[2022-11-17 11:39] VITALS: BP 121/64
[2022-11-17 16:58] VITALS: BP 121/61
[2022-11-17] MEDS: ALBUTEROL 0.083% 2.5 MG/3 ML INH IH SCH ×6 (18:00→18:30)
[2022-11-17 19:16] VITALS: BP 119/61
[2022-11-17] MEDS: SIMETHICONE 80 MG TAB.CHEW PO PRN (21:55)
[2022-11-17 23:06] VITALS: BP 126/74
[2022-11-18] MEDS: LINEZOLID 600 MG/ISO-OSM 300 ML IV SCH ×2 (01:50→13:54)
[2022-11-18 03:28] VITALS: BP 123/68
[2022-11-18 03:42] LABS: BASOPHILS % (AUTO) 0.5 % (0.0-5.0); HEMATOCRIT 25.4 % (36-48); LYMPHOCYTES % (AUTO) 14.7 % (21.0-51.0); MEAN CORPUSCULAR HEMOGLOBIN 28.9 pg (27.0-33.0); MEAN CORPUSCULAR HGB CONC 33.5 g/dL (32.0-36.0); MEAN CORPUSCULAR VOLUME 86.4 fL (79-99); MONOCYTES % (AUTO) 5.5 % (3.0-13.0); NEUTROPHILS % (AUTO) 77.5 % (40.0-77.0); PLATELET COUNT (AUTO) 112 K/uL (130-400); RED BLOOD CELL COUNT(AUTO) 2.94 MIL/uL (4.00-5.50); RED CELL DISTRIBUTION WIDTH 16.6 % (11.0-15.5); WHITE BLOOD COUNT (AUTO) 6.3 K/uL (4.8-10.8)
[2022-11-18 04:03] LABS: ALBUMIN 1.6 g/dL (3.5-5.0); CREATININE 0.7 mg/dL (0.5-1.5); MAGNESIUM 1.4 mg/dL (1.80-2.40); PHOSPHORUS 2.8 mg/dL (2.5-4.9); POTASSIUM 3.2 mmol/L (3.5-5.1); TOTAL PROTEIN, SERUM 5.2 g/dL (6.0-8.3)
[2022-11-18] MEDS: MAGNESIUM 2GM PREMIX 50ML 50 ML IV PRN (04:38)
[2022-11-18] MEDS: KCL 20 MEQ ERTAB PO PRN ×3 (04:38→08:57)
[2022-11-18] MEDS: METRONIDAZOLE 500MG/100ML BAG 100 ML IVPB SCH ×3 (06:13→20:30)
[2022-11-18] MEDS: MEROPENEM 1 GM VIAL IVPB SCH ×3 (06:13→20:30)
[2022-11-18 06:22] VITALS: BP 119/64
[2022-11-18] MEDS: FUROSEMIDE 20 MG TABLET PO SCH ×2 (07:20→20:30)
[2022-11-18] MEDS: FAMOTIDINE 20MG VIAL IV SCH (07:20)
[2022-11-18] MEDS: FLUCONAZOLE 200 MG/NS 100 ML 100 ML IV SCH (07:22)
[2022-11-18] MEDS: 0.9%NACL 10ML VIAL IV SCH ×2 (07:22→20:29)
[2022-11-18] MEDS: LACTULOSE 20 GM/30 ML UDCUP PO SCH ×2 (07:31→20:29)
[2022-11-18 11:30] VITALS: BP 110/55
[2022-11-18 15:46] VITALS: BP 119/60
[2022-11-18] MEDS ORDERED: ALTEPLASE 2MG VIAL 2 MG/VIAL VIAL IVCATH ONE (16:30)
[2022-11-18 20:16] VITALS: BP 112/59
[2022-11-19] VITALS: BP 124/64
[2022-11-19] MEDS: LINEZOLID 600 MG/ISO-OSM 300 ML IV SCH ×2 (02:57→14:31)
[2022-11-19 03:38] LABS: BASOPHILS % (AUTO) 0.6 % (0.0-5.0); EOSINOPHILS % (AUTO) 0.6 % (0.0-8.0); HEMATOCRIT 24.9 % (36-48); LYMPHOCYTES % (AUTO) 15.4 % (21.0-51.0); MEAN CORPUSCULAR HEMOGLOBIN 28.7 pg (27.0-33.0); MEAN CORPUSCULAR HGB CONC 33.7 g/dL (32.0-36.0); MONOCYTES % (AUTO) 5.3 % (3.0-13.0); NEUTROPHILS % (AUTO) 77.5 % (40.0-77.0); PLATELET COUNT (AUTO) 101 K/uL (130-400); RED BLOOD CELL COUNT(AUTO) 2.93 MIL/uL (4.00-5.50); RED CELL DISTRIBUTION WIDTH 16.9 % (11.0-15.5); WHITE BLOOD COUNT (AUTO) 6.4 K/uL (4.8-10.8)
[2022-11-19 03:53] LABS: ALBUMIN 1.6 g/dL (3.5-5.0); CREATININE 0.8 mg/dL (0.5-1.5); POTASSIUM 3.6 mmol/L (3.5-5.1); TOTAL PROTEIN, SERUM 5.2 g/dL (6.0-8.3)
[2022-11-19 04:30] VITALS: BP 122/64
[2022-11-19] MEDS: METRONIDAZOLE 500MG/100ML BAG 100 ML IVPB SCH ×3 (05:57→21:15)
[2022-11-19] MEDS: MEROPENEM 1 GM VIAL IVPB SCH ×3 (05:57→21:15)
[2022-11-19 07:05] VITALS: BP 119/64
[2022-11-19] MEDS: FAMOTIDINE 20MG VIAL IV SCH (08:00)
[2022-11-19] MEDS: LACTULOSE 20 GM/30 ML UDCUP PO SCH ×2 (08:00→21:15)
[2022-11-19] MEDS: FUROSEMIDE 20 MG TABLET PO SCH ×2 (08:00→21:14)
[2022-11-19] MEDS: 0.9%NACL 10ML VIAL IV SCH ×2 (08:02→21:15)
[2022-11-19] MEDS: FLUCONAZOLE 200 MG/NS 100 ML 100 ML IV SCH (08:02)
[2022-11-19 11:20] VITALS: BP 117/64
[2022-11-19] MEDS: KCL 20 MEQ ERTAB PO PRN ×2 (11:36→13:31)
[2022-11-19 16:24] VITALS: BP 132/69
[2022-11-19 19:49] VITALS: BP 123/68
[2022-11-20] VITALS (26 sets, daily range): BP systolic 85–134; BP diastolic 29–71
[2022-11-20] MEDS: LINEZOLID 600 MG/ISO-OSM 300 ML IV SCH (02:56)
[2022-11-20 04:12] LABS: BASOPHILS % (AUTO) 0.8 % (0.0-5.0); EOSINOPHILS % (AUTO) 0.9 % (0.0-8.0); HEMATOCRIT 23.3 % (36-48); LYMPHOCYTES % (AUTO) 19.7 % (21.0-51.0); MEAN CORPUSCULAR HEMOGLOBIN 28.5 pg (27.0-33.0); MEAN CORPUSCULAR VOLUME 86.3 fL (79-99); MONOCYTES % (AUTO) 5.5 % (3.0-13.0); NEUTROPHILS % (AUTO) 72.3 % (40.0-77.0); PLATELET COUNT (AUTO) 85 K/uL (130-400); WHITE BLOOD COUNT (AUTO) 5.3 K/uL (4.8-10.8)
[2022-11-20 04:25] LABS: ALBUMIN 1.5 g/dL (3.5-5.0); CREATININE 0.7 mg/dL (0.5-1.5); POTASSIUM 3.6 mmol/L (3.5-5.1); TOTAL PROTEIN, SERUM 5.1 g/dL (6.0-8.3)
[2022-11-20] MEDS: MEROPENEM 1 GM VIAL IVPB SCH ×3 (05:34→20:40)
[2022-11-20] MEDS: METRONIDAZOLE 500MG/100ML BAG 100 ML IVPB SCH ×3 (05:34→20:40)
[2022-11-20] MEDS: FUROSEMIDE 20 MG TABLET PO SCH ×2 (08:00→20:39)
[2022-11-20] MEDS ORDERED: IOHEXOL-350 50ML VIAL IV ONE (08:50)
[2022-11-20 08:54] LABS: HEMATOCRIT 24.3 % (36-48); MEAN CORPUSCULAR HGB CONC 33.7 g/dL (32.0-36.0); MEAN CORPUSCULAR VOLUME 85.9 fL (79-99); RED BLOOD CELL COUNT(AUTO) 2.83 MIL/uL (4.00-5.50); WHITE BLOOD COUNT (AUTO) 5.6 K/uL (4.8-10.8)
[2022-11-20] MEDS: LACTULOSE 20 GM/30 ML UDCUP PO SCH ×2 (09:00→20:45)
[2022-11-20] MEDS: FLUCONAZOLE 200 MG/NS 100 ML 100 ML IV SCH (09:00)
[2022-11-20] MEDS: FAMOTIDINE 20MG VIAL IV SCH (09:00)
[2022-11-20] MEDS: 0.9%NACL 10ML VIAL IV SCH ×2 (09:00→20:45)
[2022-11-20] MEDS ORDERED: 0.9%NACL 1000ML 1,000 ML IV ONE (09:58)
[2022-11-20] MEDS ORDERED: PHARMACY COMMUNICATION MISC SCH (10:00)
[2022-11-20] MEDS ORDERED: LIDOCAINE HCL 1% 20 ML VIAL ONE (10:26)
[2022-11-20] MEDS ORDERED: ROCURONIUM BROMIDE 10MG/1ML 5ML VL ONE (10:26)
[2022-11-20] MEDS ORDERED: PROPOFOL 10 MG/ML 20ML VIAL IV ONE (10:26)
[2022-11-20] MEDS ORDERED: PHENYLEPHRINE HCL 10 MG/ML 1ML VIAL IV ONE (10:48)
[2022-11-20] MEDS ORDERED: EPHEDRINE SULFATE 50 MG/ML AMPULE ONE (10:49)
[2022-11-20] MEDS ORDERED: DAPTOMYCIN IV SCH ×2 (11:00→23:00)
[2022-11-20] MEDS ORDERED: [UNRECOGNIZED DRUG - OTHER] IV SCH ×2 (11:00→23:00)
[2022-11-20] MEDS ORDERED: ALBUMIN (HUMAN) 25% 100 ML IV ONE (11:55)
[2022-11-20] MEDS: ONDANSETRON 4MG INJ IV PRN ×2 (13:02→18:53)
[2022-11-20] MEDS ORDERED: MAG/ALUM/SIMETH 30 ML UDCUP PO PRN (17:10)
[2022-11-20] MEDS: KCL 20 MEQ ERTAB PO PRN (18:00)
[2022-11-20] MEDS: MAGNESIUM 2GM PREMIX 50ML 50 ML IV SCH (18:01)
[2022-11-20] MEDS: DAPTOMYCIN IV SCH (18:14)
[2022-11-20] MEDS: [UNRECOGNIZED DRUG - OTHER] IV SCH (18:14)
[2022-11-20] MEDS ORDERED: PROMETHAZINE HCL 25 MG/ML 1ML AMPULE IM ONE (20:30)
[2022-11-21] VITALS (84 sets, daily range): BP systolic 66–151; BP diastolic 39–81
[2022-11-21] MEDS ORDERED: MORPHINE 2 MG SYG IVP PRN (00:30)
[2022-11-21 00:48] LABS: BASOPHILS % (AUTO) 0.3 % (0.0-5.0); HEMATOCRIT 29.5 % (36-48); LYMPHOCYTES % (AUTO) 1.5 % (21.0-51.0); MEAN CORPUSCULAR HEMOGLOBIN 29.1 pg (27.0-33.0); MEAN CORPUSCULAR HGB CONC 32.2 g/dL (32.0-36.0); MEAN CORPUSCULAR VOLUME 90.5 fL (79-99); MONOCYTES % (AUTO) 1.1 % (3.0-13.0); NEUTROPHILS % (AUTO) 94.3 % (40.0-77.0); NUCLEATED RED BLOOD CELLS 0.1 % (0.0-0.19); PLATELET COUNT (AUTO) 63 K/uL (130-400); RED BLOOD CELL COUNT(AUTO) 3.26 MIL/uL (4.00-5.50); RED CELL DISTRIBUTION WIDTH 17.9 % (11.0-15.5)
[2022-11-21 00:57] LABS: WHITE BLOOD COUNT (AUTO) 37.8 K/uL (4.8-10.8)
[2022-11-21 01:02] LABS: CREATININE 1.2 mg/dL (0.5-1.5); POTASSIUM 4.3 mmol/L (3.5-5.1)
[2022-11-21] MEDS: 0.9%NACL 1000ML 1,000 ML IV SCH ×3 (01:02→20:44)
[2022-11-21 01:07] LABS: ALBUMIN 1.7 g/dL (3.5-5.0); TOTAL PROTEIN, SERUM 4.6 g/dL (6.0-8.3)
[2022-11-21 01:38] LABS: BAND NEUTROPHILS % (MANUAL) 18 % (0-2); LYMPHOCYTES % (MANUAL) 1 % (22-44); MAN.DIFF COMMENT-IMPRESSION MANUAL DIFFERENTIAL; MONOCYTES % (MANUAL) 2 % (2-9); SEGMENTED NEUTROPHILS % 79 % (40-70)
[2022-11-21 01:39] LABS: PLATELET MORPHOLOGY COMMENT DECREASED
[2022-11-21] MEDS ORDERED: 0.9%NACL 1000ML 1,000 ML IV SCH (03:30)
[2022-11-21] MEDS: METRONIDAZOLE 500MG/100ML BAG 100 ML IVPB SCH ×3 (06:17→23:02)
[2022-11-21] MEDS: MEROPENEM 1 GM VIAL IVPB SCH ×2 (06:17→18:47)
[2022-11-21] MEDS ORDERED: GADOTERATE MEGLUMINE 10 MMOL/20 ML VIAL IV ONE (06:51)
[2022-11-21] MEDS: FUROSEMIDE 20 MG TABLET PO SCH ×3 (08:00→20:43)
[2022-11-21] MEDS: LACTULOSE 20 GM/30 ML UDCUP PO SCH ×3 (08:41→20:42)
[2022-11-21] MEDS: FLUCONAZOLE 200 MG/NS 100 ML 100 ML IV SCH (08:41)
[2022-11-21] MEDS: PANTOPRAZOLE 40 MG/VIAL IVP SCH ×2 (08:41→20:41)
[2022-11-21] MEDS: NOREPINEPHRIN 4MG/NS 250ML 250 ML IV SCH ×3 (08:43→19:53)
[2022-11-21] MEDS: 0.9%NACL 10ML VIAL IV SCH ×2 (08:48→20:42)
[2022-11-21 09:48] LABS: ABG BASE EXCESS -7.2 mmol/L (-2.0-3.0); ABG HCO3 15.5 mmol/L (21.0-28.0); ABG PCO2 23 mmHg (32-45)
[2022-11-21] MEDS ORDERED: VANCOMYCIN 1G VIAL IVPB SCH (10:00)
[2022-11-21] MEDS ORDERED: 0.9%NACL 1000ML 1,365 ML IV SCH (10:00)
[2022-11-21] MEDS ORDERED: VANCOMYCIN PROTOCOL PER PHARMACY IV SCH (10:00)
[2022-11-21] MEDS ORDERED: 0.9% NACL 250ML IV SCH (10:00)
[2022-11-21 10:06] LABS: HEMATOCRIT 24.9 % (36-48); MEAN CORPUSCULAR HEMOGLOBIN 28.4 pg (27.0-33.0); MEAN CORPUSCULAR HGB CONC 32.9 g/dL (32.0-36.0); MEAN CORPUSCULAR VOLUME 86.2 fL (79-99); NUCLEATED RED BLOOD CELLS 0.1 % (0.0-0.19); RED BLOOD CELL COUNT(AUTO) 2.89 MIL/uL (4.00-5.50); RED CELL DISTRIBUTION WIDTH 17.7 % (11.0-15.5)
[2022-11-21 10:09] LABS: WHITE BLOOD COUNT (AUTO) 30.1 K/uL (4.8-10.8)
[2022-11-21 10:16] LABS: CARBON DIOXIDE 16 mmol/L (21-32); CHLORIDE 97 mmol/L (101-111); CREATININE 1.4 mg/dL (0.5-1.5); GLOMERULAR FILTR. RATE CALC 41 mL/min (>90); GLUCOSE,RANDOM 366 mg/dL (70-105); POTASSIUM 4.3 mmol/L (3.5-5.1); SODIUM SERUM 128 mmol/L (136-145); UREA NITROGEN, BLOOD 16 mg/dL (7-18)
[2022-11-21 10:22] LABS: % IRON SATURATION 118.7 % (22-44)
[2022-11-21 10:23] LABS: ALANINE AMINOTRANSFERASE 61 U/L (12-78); ALBUMIN 1.6 g/dL (3.5-5.0); AMYLASE 93 U/L (25-115); ASPARTATE AMINOTRANSFERASE 190 U/L (10-37); PHOSPHORUS 3.4 mg/dL (2.5-4.9); TOTAL PROTEIN, SERUM 4.2 g/dL (6.0-8.3)
[2022-11-21 10:28] LABS: LIPASE < 50 U/L (114-286)
[2022-11-21 10:29] LABS: AMMONIA < 10 umol/L (11-32); BILIRUBIN,DIRECT 8.5 mg/dL (0.0-0.3)
[2022-11-21] MEDS: ALBUTEROL 0.083% 2.5 MG/3 ML INH IH SCH ×4 (10:43→22:00)
[2022-11-21] MEDS: PHENYLEPHRINE HCL 100 MG in 0.9% NACL 250ML 250 ML IV SCH (10:44)
[2022-11-21] MEDS: VANCOMYCIN 1G/250ML KIT 250 ML IV SCH ×2 (10:59→12:08)
[2022-11-21] MEDS ORDERED: MAGNESIUM 2GM PREMIX 50ML 50 ML IV SCH (12:00)
[2022-11-21] MEDS: MAGNESIUM 2GM PREMIX 50ML 50 ML IV SCH (15:42)
[2022-11-21] MEDS: [UNRECOGNIZED DRUG - OTHER] IV SCH (17:50)
[2022-11-21] MEDS: DAPTOMYCIN IV SCH (17:50)
[2022-11-21 18:17] LABS: HEMATOCRIT 23.5 % (36-48); MEAN CORPUSCULAR HEMOGLOBIN 28.6 pg (27.0-33.0); MEAN CORPUSCULAR HGB CONC 33.2 g/dL (32.0-36.0); MEAN CORPUSCULAR VOLUME 86.1 fL (79-99); RED BLOOD CELL COUNT(AUTO) 2.73 MIL/uL (4.00-5.50); RED CELL DISTRIBUTION WIDTH 17.9 % (11.0-15.5); WHITE BLOOD COUNT (AUTO) 21.2 K/uL (4.8-10.8)
[2022-11-22] VITALS (60 sets, daily range): BP systolic 90–132; BP diastolic 43–73
[2022-11-22] MEDS: ALBUTEROL 0.083% 2.5 MG/3 ML INH IH SCH ×2 (03:08→06:27)
[2022-11-22] MEDS: PHENYLEPHRINE HCL 100 MG in 0.9% NACL 250ML 250 ML IV SCH (03:58)
[2022-11-22 04:44] LABS: HEMATOCRIT 28.4 % (36-48); MEAN CORPUSCULAR HEMOGLOBIN 28.7 pg (27.0-33.0); MEAN CORPUSCULAR HGB CONC 34.2 g/dL (32.0-36.0); RED BLOOD CELL COUNT(AUTO) 3.38 MIL/uL (4.00-5.50); RED CELL DISTRIBUTION WIDTH 16.8 % (11.0-15.5); WHITE BLOOD COUNT (AUTO) 14.9 K/uL (4.8-10.8)
[2022-11-22 05:07] LABS: ALBUMIN 1.6 g/dL (3.5-5.0); CREATININE 1.3 mg/dL (0.5-1.5); POTASSIUM 3.9 mmol/L (3.5-5.1); TOTAL PROTEIN, SERUM 4.2 g/dL (6.0-8.3)
[2022-11-22] MEDS: METRONIDAZOLE 500MG/100ML BAG 100 ML IVPB SCH ×2 (05:59→14:19)
[2022-11-22] MEDS: MEROPENEM 1 GM VIAL IVPB SCH ×2 (05:59→17:00)
[2022-11-22] MEDS ORDERED: PHYTONADIONE 10 MG in 0.9%NACL 50ML 50 ML IVPB SCH (07:30)
[2022-11-22 08:13] LABS: HEMATOCRIT 28.9 % (36-48); MEAN CORPUSCULAR HEMOGLOBIN 29.1 pg (27.0-33.0); MEAN CORPUSCULAR HGB CONC 34.6 g/dL (32.0-36.0); RED BLOOD CELL COUNT(AUTO) 3.44 MIL/uL (4.00-5.50)
[2022-11-22] MEDS: PANTOPRAZOLE 40 MG/VIAL IVP SCH ×2 (08:16→20:45)
[2022-11-22] MEDS: FLUCONAZOLE 200 MG/NS 100 ML 100 ML IV SCH (08:16)
[2022-11-22] MEDS: LACTULOSE 20 GM/30 ML UDCUP PO SCH ×2 (08:16→20:45)
[2022-11-22] MEDS: FUROSEMIDE 20 MG TABLET PO SCH (08:17)
[2022-11-22] MEDS: MIDODRINE HCL 5 MG TABLET PO SCH ×3 (08:17→20:45)
[2022-11-22] MEDS: 0.9%NACL 10ML VIAL IV SCH ×2 (08:17→20:45)
[2022-11-22] MEDS: 0.9%NACL 1000ML 1,000 ML IV SCH ×2 (08:17→16:30)
[2022-11-22 08:24] LABS: INR 1.99 (0.85-1.15); PROTHROMBIN TIME 20.9 SEC (9.6-11.6)
[2022-11-22 08:26] LABS: PARTIAL THROMBOPLASTIN TIME 50.3 SEC (26.3-35.5)
[2022-11-22] MEDS ORDERED: COMPOUND IV MISC 1 EACH IVSOLN MISC PRN (16:00)
[2022-11-22 17:02] LABS: HEMATOCRIT 26.7 % (36-48)
[2022-11-22] MEDS ORDERED: HYDROCORTISONE SOD SUCCINATE 100 MG/2 ML VIAL IV SCH (18:00)
[2022-11-22] MEDS: DAPTOMYCIN IV SCH (18:35)
[2022-11-22] MEDS: [UNRECOGNIZED DRUG - OTHER] IV SCH (18:35)
[2022-11-23] VITALS (47 sets, daily range): BP systolic 100–131; BP diastolic 49–75
[2022-11-23] MEDS: 0.9%NACL 1000ML 1,000 ML IV SCH (00:49)
[2022-11-23 00:58] LABS: HEMATOCRIT 26.7 % (36-48)
[2022-11-23] MEDS ORDERED: PHENYLEPHRINE HCL 10 MG/ML 1ML VIAL IV ONE (03:29)
[2022-11-23] MEDS: PHENYLEPHRINE HCL 100 MG in 0.9% NACL 250ML 250 ML IV SCH (03:42)
[2022-11-23 04:07] LABS: BASOPHILS % (AUTO) 0.7 % (0.0-5.0); EOSINOPHILS % (AUTO) 0.6 % (0.0-8.0); HEMATOCRIT 26.5 % (36-48); LYMPHOCYTES % (AUTO) 7.6 % (21.0-51.0); MEAN CORPUSCULAR VOLUME 85.5 fL (79-99); MONOCYTES % (AUTO) 8.5 % (3.0-13.0); PLATELET COUNT (AUTO) 34 K/uL (130-400); RED CELL DISTRIBUTION WIDTH 17.4 % (11.0-15.5); WHITE BLOOD COUNT (AUTO) 10.9 K/uL (4.8-10.8)
[2022-11-23 04:19] LABS: ALBUMIN 1.6 g/dL (3.5-5.0); POTASSIUM 3.7 mmol/L (3.5-5.1); TOTAL PROTEIN, SERUM 4.4 g/dL (6.0-8.3)
[2022-11-23] MEDS: MEROPENEM 1 GM VIAL IVPB SCH ×2 (05:55→17:13)
[2022-11-23] MEDS ORDERED: KETAMINE 50MG/ML SYRINGE 50 MG/ML DISP.SYRIN ONE (07:50)
[2022-11-23] MEDS: LACTULOSE 20 GM/30 ML UDCUP PO SCH ×2 (08:47→21:37)
[2022-11-23] MEDS: PANTOPRAZOLE 40 MG/VIAL IVP SCH (08:47)
[2022-11-23] MEDS: MIDODRINE HCL 5 MG TABLET PO SCH ×3 (08:47→21:37)
[2022-11-23] MEDS: FLUCONAZOLE 200 MG/NS 100 ML 100 ML IV SCH (08:47)
[2022-11-23] MEDS: 0.9%NACL 10ML VIAL IV SCH ×2 (08:48→21:36)
[2022-11-23] MEDS: FUROSEMIDE 40MG VIAL IV SCH ×2 (08:48→17:14)
[2022-11-23] MEDS ORDERED: DEXAMETHASONE SOD PHOSPHATE 4 MG/ML 1ML VIAL IV SCH (09:00)
[2022-11-23] MEDS ORDERED: PHYTONADIONE 10 MG in 0.9%NACL 50ML 50 ML IVPB SCH (09:00)
[2022-11-23] MEDS: DEXAMETHASONE 10MG/ML 1ML VIAL 20 MG in 0.9%NACL 50ML 50 ML IV SCH (09:04)
[2022-11-23] MEDS ORDERED: CLINIMIX-E 5%AA /D15%W 2000ML 2,000 ML IV SCH (10:30)
[2022-11-23] MEDS: INSULIN HUMULIN R 100 UNIT/ML 3ML SQ SCH ×3 (11:30→21:41)
[2022-11-23] MEDS ORDERED: GADOTERATE MEGLUMINE 10 MMOL/20 ML VIAL IV ONE (13:37)
[2022-11-23] MEDS: POTASSIUM CHLORIDE 10% ELIXIR 20 MEQ/15 ML UDCUP PO PRN (17:15)
[2022-11-23] MEDS: DAPTOMYCIN IV SCH (17:35)
[2022-11-23] MEDS: [UNRECOGNIZED DRUG - OTHER] IV SCH (17:35)
[2022-11-23] MEDS ORDERED: PANTOPRAZOLE 40 MG/VIAL IVP SCH (21:00)
[2022-11-24] MEDS: FUROSEMIDE 40MG VIAL IV SCH ×3 (00:19→17:05)
[2022-11-24 03:52] LABS: HEMATOCRIT 25.2 % (36-48); LYMPHOCYTES % (AUTO) 13.7 % (21.0-51.0); MEAN CORPUSCULAR HEMOGLOBIN 28.8 pg (27.0-33.0); MEAN CORPUSCULAR HGB CONC 33.7 g/dL (32.0-36.0); MEAN CORPUSCULAR VOLUME 85.4 fL (79-99); MONOCYTES % (AUTO) 12.2 % (3.0-13.0); NEUTROPHILS % (AUTO) 73.7 % (40.0-77.0); PLATELET COUNT (AUTO) 21 K/uL (130-400); RED BLOOD CELL COUNT(AUTO) 2.95 MIL/uL (4.00-5.50); RED CELL DISTRIBUTION WIDTH 17.2 % (11.0-15.5); WHITE BLOOD COUNT (AUTO) 2.6 K/uL (4.8-10.8)
[2022-11-24 04:13] VITALS: BP 107/54
[2022-11-24 04:16] LABS: LYMPHOCYTES % (MANUAL) 10 % (22-44); MAN.DIFF COMMENT-IMPRESSION MANUAL DIFFERENTIAL; MONOCYTES % (MANUAL) 6 % (2-9); SEGMENTED NEUTROPHILS % 84 % (40-70)
[2022-11-24 04:17] LABS: PLATELET MORPHOLOGY COMMENT MARKED DECREASE
[2022-11-24 04:27] LABS: ALBUMIN 1.7 g/dL (3.5-5.0); CREATININE 1.1 mg/dL (0.5-1.5); POTASSIUM 3.4 mmol/L (3.5-5.1); TOTAL PROTEIN, SERUM 4.8 g/dL (6.0-8.3)
[2022-11-24] MEDS: MEROPENEM 1 GM VIAL IVPB SCH ×2 (05:33→17:05)
[2022-11-24] MEDS: INSULIN HUMULIN R 100 UNIT/ML 3ML SQ SCH ×4 (06:03→21:49)
[2022-11-24 08:00] VITALS: BP 113/52
[2022-11-24] MEDS: FLUCONAZOLE 200 MG/NS 100 ML 100 ML IV SCH (08:19)
[2022-11-24] MEDS: LACTULOSE 20 GM/30 ML UDCUP PO SCH ×3 (08:20→21:54)
[2022-11-24] MEDS: POTASSIUM CHLORIDE 10% ELIXIR 20 MEQ/15 ML UDCUP PO PRN (08:20)
[2022-11-24] MEDS: POTASSIUM CHLORIDE 10MEQ/100ML 100 ML IV PRN (08:20)
[2022-11-24] MEDS: PANTOPRAZOLE 40 MG/VIAL IVP SCH (08:21)
[2022-11-24] MEDS: MIDODRINE HCL 5 MG TABLET PO SCH ×3 (08:21→21:55)
[2022-11-24] MEDS: 0.9%NACL 10ML VIAL IV SCH ×2 (09:00→21:50)
[2022-11-24 09:23] LABS: HEMATOCRIT 25.4 % (36-48)
[2022-11-24 09:51] LABS: CREATININE 1.1 mg/dL (0.5-1.5); POTASSIUM 3.7 mmol/L (3.5-5.1)
[2022-11-24 11:36] VITALS: BP 117/55
[2022-11-24] MEDS: DEXAMETHASONE 10MG/ML 1ML VIAL 20 MG in 0.9%NACL 50ML 50 ML IV SCH (12:08)
[2022-11-24 16:00] VITALS: BP 113/53
[2022-11-24 16:47] LABS: HEMATOCRIT 26.6 % (36-48)
[2022-11-24] MEDS ORDERED: CLINIMIX-E 5%AA /D15%W 2000ML 2,000 ML IV SCH (17:00)
[2022-11-24 19:51] VITALS: BP 122/51
[2022-11-24] MEDS: [UNRECOGNIZED DRUG - OTHER] IV SCH (21:00)
[2022-11-24] MEDS: DAPTOMYCIN IV SCH (21:00)
[2022-11-24] MEDS ORDERED: PHENOL 177 ML BOTTLE PO PRN (23:30)
[2022-11-25] VITALS (7 sets, daily range): BP systolic 104–138; BP diastolic 52–68
[2022-11-25] MEDS: FUROSEMIDE 40MG VIAL IV SCH ×3 (01:23→17:00)
[2022-11-25 04:06] LABS: HEMATOCRIT 25.5 % (36-48); LYMPHOCYTES % (AUTO) 11.2 % (21.0-51.0); MEAN CORPUSCULAR HEMOGLOBIN 29.3 pg (27.0-33.0); MEAN CORPUSCULAR HGB CONC 33.3 g/dL (32.0-36.0); MEAN CORPUSCULAR VOLUME 87.9 fL (79-99); MONOCYTES % (AUTO) 14.6 % (3.0-13.0); PLATELET COUNT (AUTO) 24 K/uL (130-400); RED CELL DISTRIBUTION WIDTH 17.4 % (11.0-15.5); WHITE BLOOD COUNT (AUTO) 4.8 K/uL (4.8-10.8)
[2022-11-25 04:17] LABS: ALBUMIN 1.8 g/dL (3.5-5.0); POTASSIUM 3.2 mmol/L (3.5-5.1); TOTAL PROTEIN, SERUM 5.1 g/dL (6.0-8.3)
[2022-11-25] MEDS: MEROPENEM 1 GM VIAL IVPB SCH ×2 (06:25→17:41)
[2022-11-25] MEDS: POTASSIUM CHLORIDE 10% ELIXIR 20 MEQ/15 ML UDCUP PO PRN (06:26)
[2022-11-25] MEDS: INSULIN HUMULIN R 100 UNIT/ML 3ML SQ SCH ×4 (06:26→22:44)
[2022-11-25] MEDS: FLUCONAZOLE 200 MG/NS 100 ML 100 ML IV SCH (08:53)
[2022-11-25] MEDS: POTASSIUM CHLORIDE 10MEQ/100ML 100 ML IV PRN (08:54)
[2022-11-25] MEDS: PANTOPRAZOLE 40 MG/VIAL IVP SCH (08:55)
[2022-11-25] MEDS: MIDODRINE HCL 5 MG TABLET PO SCH ×3 (08:56→22:42)
[2022-11-25] MEDS: LACTULOSE 20 GM/30 ML UDCUP PO SCH ×2 (08:57→22:42)
[2022-11-25] MEDS: 0.9%NACL 10ML VIAL IV SCH ×2 (09:00→22:42)
[2022-11-25] MEDS: DEXAMETHASONE 10MG/ML 1ML VIAL 20 MG in 0.9%NACL 50ML 50 ML IV SCH (12:34)
[2022-11-25] MEDS ORDERED: CLINIMIX-E 5%AA /D15%W 2000ML 2,000 ML IV SCH (18:00)
[2022-11-25] MEDS: DAPTOMYCIN IV SCH (22:48)
[2022-11-25] MEDS: [UNRECOGNIZED DRUG - OTHER] IV SCH (22:48)
[2022-11-26] MEDS: FUROSEMIDE 40MG VIAL IV SCH ×3 (00:58→17:40)
[2022-11-26 03:58] LABS: HEMATOCRIT 25.8 % (36-48); LYMPHOCYTES % (AUTO) 10.9 % (21.0-51.0); MEAN CORPUSCULAR HEMOGLOBIN 28.6 pg (27.0-33.0); MEAN CORPUSCULAR HGB CONC 33.7 g/dL (32.0-36.0); MEAN CORPUSCULAR VOLUME 84.9 fL (79-99); NEUTROPHILS % (AUTO) 69.5 % (40.0-77.0); PLATELET COUNT (AUTO) 24 K/uL (130-400); RED BLOOD CELL COUNT(AUTO) 3.04 MIL/uL (4.00-5.50); WHITE BLOOD COUNT (AUTO) 5.3 K/uL (4.8-10.8)
[2022-11-26 04:00] VITALS: BP 131/63
[2022-11-26 04:16] LABS: ALBUMIN 1.5 g/dL (3.5-5.0); CREATININE 0.9 mg/dL (0.5-1.5); POTASSIUM 3.3 mmol/L (3.5-5.1); TOTAL PROTEIN, SERUM 5.2 g/dL (6.0-8.3)
[2022-11-26] MEDS: POTASSIUM CHLORIDE 10% ELIXIR 20 MEQ/15 ML UDCUP PO PRN ×2 (05:33→08:53)
[2022-11-26] MEDS: MEROPENEM 1 GM VIAL IVPB SCH ×2 (05:33→18:20)
[2022-11-26] MEDS: INSULIN HUMULIN R 100 UNIT/ML 3ML SQ SCH ×4 (06:17→20:35)
[2022-11-26 07:00] VITALS: BP 126/65
[2022-11-26] MEDS: LACTULOSE 20 GM/30 ML UDCUP PO SCH ×2 (08:38→20:30)
[2022-11-26] MEDS: FLUCONAZOLE 200 MG/NS 100 ML 100 ML IV SCH (08:49)
[2022-11-26] MEDS: 0.9%NACL 10ML VIAL IV SCH ×2 (08:50→21:54)
[2022-11-26] MEDS: PANTOPRAZOLE 40 MG/VIAL IVP SCH (08:50)
[2022-11-26] MEDS: MIDODRINE HCL 5 MG TABLET PO SCH ×3 (08:50→20:30)
[2022-11-26 11:09] VITALS: BP 123/59
[2022-11-26] MEDS: DEXAMETHASONE 10MG/ML 1ML VIAL 20 MG in 0.9%NACL 50ML 50 ML IV SCH (12:39)
[2022-11-26 16:00] VITALS: BP 126/60
[2022-11-26] MEDS: KCL 20 MEQ ERTAB PO PRN (18:20)
[2022-11-26 20:00] VITALS: BP 129/67
[2022-11-26] MEDS: INSULIN GLARGINE 100 UNITS/ML 10 ML VIAL SQ SCH (20:36)
[2022-11-26] MEDS ORDERED: TRIAMCINOLONE ACETONIDE 0.1% CREAM 15GM TP SCH (21:00)
[2022-11-26] MEDS: DAPTOMYCIN IV SCH (21:54)
[2022-11-26] MEDS: [UNRECOGNIZED DRUG - OTHER] IV SCH (21:54)
[2022-11-27] VITALS (7 sets, daily range): BP systolic 111–135; BP diastolic 49–58
[2022-11-27] MEDS: FUROSEMIDE 40MG VIAL IV SCH ×3 (00:25→17:05)
[2022-11-27] MEDS: MEROPENEM 1 GM VIAL IVPB SCH ×2 (05:51→18:12)
[2022-11-27] MEDS: INSULIN HUMULIN R 100 UNIT/ML 3ML SQ SCH ×4 (06:28→20:40)
[2022-11-27] MEDS: INSULIN GLARGINE 100 UNITS/ML 10 ML VIAL SQ SCH ×2 (06:52→20:34)
[2022-11-27] MEDS: FLUCONAZOLE 200 MG/NS 100 ML 100 ML IV SCH (08:01)
[2022-11-27] MEDS: MIDODRINE HCL 5 MG TABLET PO SCH ×3 (08:02→20:33)
[2022-11-27] MEDS: PANTOPRAZOLE 40 MG/VIAL IVP SCH (08:02)
[2022-11-27] MEDS: LACTULOSE 20 GM/30 ML UDCUP PO SCH ×2 (09:00→20:31)
[2022-11-27] MEDS: 0.9%NACL 10ML VIAL IV SCH ×2 (09:00→20:33)
[2022-11-27] MEDS: DEXAMETHASONE 10MG/ML 1ML VIAL 20 MG in 0.9%NACL 50ML 50 ML IV SCH (09:23)
[2022-11-27] MEDS: [UNRECOGNIZED DRUG - OTHER] IV SCH (20:33)
[2022-11-27] MEDS: DAPTOMYCIN IV SCH (20:33)
[2022-11-27] MEDS ORDERED: OMEG100014 PO (22:50)
[2022-11-28] VITALS (7 sets, daily range): BP systolic 109–131; BP diastolic 54–67
[2022-11-28] MEDS: FUROSEMIDE 40MG VIAL IV SCH ×3 (00:05→16:47)
[2022-11-28] MEDS: MEROPENEM 1 GM VIAL IVPB SCH ×2 (04:49→18:24)
[2022-11-28 05:10] LABS: BASOPHILS % (AUTO) 0.2 % (0.0-5.0); HEMATOCRIT 28.7 % (36-48); LYMPHOCYTES % (AUTO) 14.4 % (21.0-51.0); MEAN CORPUSCULAR HEMOGLOBIN 28.3 pg (27.0-33.0); MEAN CORPUSCULAR HGB CONC 33.4 g/dL (32.0-36.0); MEAN CORPUSCULAR VOLUME 84.7 fL (79-99); MONOCYTES % (AUTO) 13.1 % (3.0-13.0); NEUTROPHILS % (AUTO) 70.2 % (40.0-77.0); PLATELET COUNT (AUTO) 44 K/uL (130-400); RED BLOOD CELL COUNT(AUTO) 3.39 MIL/uL (4.00-5.50); RED CELL DISTRIBUTION WIDTH 17.4 % (11.0-15.5); WHITE BLOOD COUNT (AUTO) 4.7 K/uL (4.8-10.8)
[2022-11-28 05:22] LABS: CREATININE 0.8 mg/dL (0.5-1.5); POTASSIUM 3.3 mmol/L (3.5-5.1)
[2022-11-28] MEDS: INSULIN HUMULIN R 100 UNIT/ML 3ML SQ SCH ×4 (05:33→21:00)
[2022-11-28] MEDS: INSULIN GLARGINE 100 UNITS/ML 10 ML VIAL SQ SCH ×2 (06:12→21:03)
[2022-11-28] MEDS: KCL 20 MEQ ERTAB PO PRN ×2 (06:12→14:20)
[2022-11-28] MEDS: FLUCONAZOLE 200 MG/NS 100 ML 100 ML IV SCH (09:22)
[2022-11-28] MEDS: 0.9%NACL 10ML VIAL IV SCH ×2 (09:22→21:00)
[2022-11-28] MEDS: LACTULOSE 20 GM/30 ML UDCUP PO SCH ×2 (09:22→20:54)
[2022-11-28] MEDS: MIDODRINE HCL 5 MG TABLET PO SCH ×3 (09:22→20:54)
[2022-11-28] MEDS: PANTOPRAZOLE 40 MG/VIAL IVP SCH (09:22)
[2022-11-28] MEDS: POTASSIUM CHLORIDE 10% ELIXIR 20 MEQ/15 ML UDCUP PO PRN (09:24)
[2022-11-28] MEDS: DEXAMETHASONE 10MG/ML 1ML VIAL 20 MG in 0.9%NACL 50ML 50 ML IV SCH (11:24)
[2022-11-28] MEDS: [UNRECOGNIZED DRUG - OTHER] IV SCH (21:32)
[2022-11-28] MEDS: DAPTOMYCIN IV SCH (21:32)
[2022-11-29] MEDS: FUROSEMIDE 40MG VIAL IV SCH ×3 (01:05→16:29)
[2022-11-29 03:50] VITALS: BP 123/52
[2022-11-29 04:54] LABS: BASOPHILS % (AUTO) 0.2 % (0.0-5.0); HEMATOCRIT 27.8 % (36-48); LYMPHOCYTES % (AUTO) 8.6 % (21.0-51.0); MEAN CORPUSCULAR HEMOGLOBIN 28.4 pg (27.0-33.0); MEAN CORPUSCULAR HGB CONC 34.2 g/dL (32.0-36.0); MEAN CORPUSCULAR VOLUME 83.2 fL (79-99); MONOCYTES % (AUTO) 15.1 % (3.0-13.0); NEUTROPHILS % (AUTO) 74.5 % (40.0-77.0); PLATELET COUNT (AUTO) 59 K/uL (130-400); RED BLOOD CELL COUNT(AUTO) 3.34 MIL/uL (4.00-5.50); RED CELL DISTRIBUTION WIDTH 18.1 % (11.0-15.5); WHITE BLOOD COUNT (AUTO) 5.7 K/uL (4.8-10.8)
[2022-11-29 05:10] LABS: CREATININE 0.8 mg/dL (0.5-1.5); MAGNESIUM 1.6 mg/dL (1.80-2.40); PHOSPHORUS 4.4 mg/dL (2.5-4.9); POTASSIUM 3.5 mmol/L (3.5-5.1); TOTAL PROTEIN, SERUM 5.4 g/dL (6.0-8.3)
[2022-11-29] MEDS: INSULIN HUMULIN R 100 UNIT/ML 3ML SQ SCH ×4 (05:10→20:39)
[2022-11-29] MEDS: MEROPENEM 1 GM VIAL IVPB SCH ×2 (05:19→18:00)
[2022-11-29] MEDS: INSULIN GLARGINE 100 UNITS/ML 10 ML VIAL SQ SCH ×2 (06:53→20:38)
[2022-11-29 07:50] VITALS: BP 115/54
[2022-11-29] MEDS: PANTOPRAZOLE 40 MG/VIAL IVP SCH (08:33)
[2022-11-29] MEDS: MIDODRINE HCL 5 MG TABLET PO SCH ×3 (08:33→20:20)
[2022-11-29] MEDS: LACTULOSE 20 GM/30 ML UDCUP PO SCH ×3 (08:33→21:00)
[2022-11-29] MEDS: 0.9%NACL 10ML VIAL IV SCH ×2 (08:34→20:22)
[2022-11-29] MEDS: FLUCONAZOLE 200 MG/NS 100 ML 100 ML IV SCH (08:34)
[2022-11-29] MEDS: DEXAMETHASONE 10MG/ML 1ML VIAL 20 MG in 0.9%NACL 50ML 50 ML IV SCH (10:21)
[2022-11-29 11:29] VITALS: BP 124/57
[2022-11-29 15:22] VITALS: BP 124/71
[2022-11-29] MEDS: KCL 20 MEQ ERTAB PO PRN (20:20)
[2022-11-29] MEDS: POTASSIUM CHLORIDE 10% ELIXIR 20 MEQ/15 ML UDCUP PO PRN (20:20)
[2022-11-29] MEDS: MAGNESIUM 2GM PREMIX 50ML 50 ML IV SCH (20:21)
[2022-11-29] MEDS: DAPTOMYCIN IV SCH (20:39)
[2022-11-29] MEDS: [UNRECOGNIZED DRUG - OTHER] IV SCH (20:39)
[2022-11-29 21:04] VITALS: BP 121/61
[2022-11-29 23:26] VITALS: BP 114/61
[2022-11-30] MEDS: FUROSEMIDE 40MG VIAL IV SCH ×3 (00:18→17:04)
[2022-11-30 03:57] VITALS: BP 119/61
[2022-11-30 04:54] LABS: BASOPHILS % (AUTO) 0.2 % (0.0-5.0); EOSINOPHILS % (AUTO) 0.2 % (0.0-8.0); HEMATOCRIT 29.2 % (36-48); LYMPHOCYTES % (AUTO) 5.6 % (21.0-51.0); MEAN CORPUSCULAR HEMOGLOBIN 28.7 pg (27.0-33.0); MEAN CORPUSCULAR HGB CONC 34.2 g/dL (32.0-36.0); MEAN CORPUSCULAR VOLUME 83.7 fL (79-99); MONOCYTES % (AUTO) 16.8 % (3.0-13.0); NEUTROPHILS % (AUTO) 75.7 % (40.0-77.0); PLATELET COUNT (AUTO) 66 K/uL (130-400); RED BLOOD CELL COUNT(AUTO) 3.49 MIL/uL (4.00-5.50); RED CELL DISTRIBUTION WIDTH 19.1 % (11.0-15.5); WHITE BLOOD COUNT (AUTO) 5.4 K/uL (4.8-10.8)
[2022-11-30 05:29] LABS: ALBUMIN 1.8 g/dL (3.5-5.0); CREATININE 0.7 mg/dL (0.5-1.5); TOTAL PROTEIN, SERUM 5.4 g/dL (6.0-8.3)
[2022-11-30] MEDS: INSULIN HUMULIN R 100 UNIT/ML 3ML SQ SCH ×3 (05:42→16:30)
[2022-11-30] MEDS: MEROPENEM 1 GM VIAL IVPB SCH (05:49)
[2022-11-30] MEDS: INSULIN GLARGINE 100 UNITS/ML 10 ML VIAL SQ SCH (05:56)
[2022-11-30 08:00] VITALS: BP 123/53
[2022-11-30] MEDS: 0.9%NACL 10ML VIAL IV SCH (08:42)
[2022-11-30] MEDS: FLUCONAZOLE 200 MG/NS 100 ML 100 ML IV SCH (08:42)
[2022-11-30] MEDS: MIDODRINE HCL 5 MG TABLET PO SCH ×2 (08:43→14:46)
[2022-11-30] MEDS: PANTOPRAZOLE 40 MG/VIAL IVP SCH (08:43)
[2022-11-30] MEDS: LACTULOSE 20 GM/30 ML UDCUP PO SCH (09:00)
[2022-11-30] MEDS: DEXAMETHASONE 10MG/ML 1ML VIAL 20 MG in 0.9%NACL 50ML 50 ML IV SCH (10:19)
[2022-11-30 12:00] VITALS: BP 109/54
[2022-11-30 16:00] VITALS: BP 128/52
== END 2022-11-30 17:15 | DRG 871 ==
LOC: EDH 11:06 → EDHIP 14:41 → 2CH 16:05 → 2AH 11-11 16:51 → 2CH 11-21 01:03 → 2DH 11-23 18:10 → 4AH 11-26 16:20
PROVIDERS: ADMIT Internal Medicine; ATTEND Internal Medicine
PROC: 0F913ZZ Drainage of Right Lobe Liver, Percutaneous Approach (ICD-10-PCS; principal; 2022-11-09)
PROC: 0FPB8DZ Removal of Intraluminal Device from Hepatobiliary Duct, Via Natural or Artificial Opening Endoscopic (ICD-10-PCS; 2022-11-09)
PROC: 0FC98ZZ Extirpation of Matter from Common Bile Duct, Via Natural or Artificial Opening Endoscopic (ICD-10-PCS; 2022-11-09)
PROC: 02HV33Z Insertion of Infusion Device into Superior Vena Cava, Percutaneous Approach (ICD-10-PCS; 2022-11-16)
PROC: 0FPB8DZ Removal of Intraluminal Device from Hepatobiliary Duct, Via Natural or Artificial Opening Endoscopic (ICD-10-PCS; 2022-11-20)
PROC: 0F798DZ Dilation of Common Bile Duct with Intraluminal Device, Via Natural or Artificial Opening Endoscopic (ICD-10-PCS; 2022-11-20)
PROC: 30233N1 Transfusion of Nonautologous Red Blood Cells into Peripheral Vein, Percutaneous Approach (ICD-10-PCS; 2022-11-21)
PROC: 30233R1 Transfusion of Nonautologous Platelets into Peripheral Vein, Percutaneous Approach (ICD-10-PCS; 2022-11-22)
PROC: 0DJ08ZZ Inspection of Upper Intestinal Tract, Via Natural or Artificial Opening Endoscopic (ICD-10-PCS; 2022-11-23)
DX: A41.51 Sepsis due to Escherichia coli [E. coli] (principal); E43 Unspecified severe protein-calorie malnutrition; K75.0 Abscess of liver; R65.21 Severe sepsis with septic shock; J96.01 Acute respiratory failure with hypoxia; J18.9 Pneumonia, unspecified organism; C22.0 Liver cell carcinoma; E87.1 Hypo-osmolality and hyponatremia; N17.9 Acute kidney failure, unspecified; E87.4 Mixed disorder of acid-base balance; C18.9 Malignant neoplasm of colon, unspecified; D68.9 Coagulation defect, unspecified; I42.9 Cardiomyopathy, unspecified; Z16.24 Resistance to multiple antibiotics; G93.40 Encephalopathy, unspecified; K92.2 Gastrointestinal hemorrhage, unspecified; Z20.822 Contact with and (suspected) exposure to COVID-19; D69.6 Thrombocytopenia, unspecified; D63.8 Anemia in other chronic diseases classified elsewhere; J02.0 Streptococcal pharyngitis; R16.1 Splenomegaly, not elsewhere classified; K72.90 Hepatic failure, unspecified without coma; E66.09 Other obesity due to excess calories; E78.5 Hyperlipidemia, unspecified; E87.6 Hypokalemia; M19.90 Unspecified osteoarthritis, unspecified site; M81.0 Age-related osteoporosis without current pathological fracture; R13.12 Dysphagia, oropharyngeal phase; R62.7 Adult failure to thrive; Z79.899 Other long term (current) drug therapy; Z82.49 Family history of ischemic heart disease and other diseases of the circulatory system; Z85.05 Personal history of malignant neoplasm of liver; Z88.1 Allergy status to other antibiotic agents; Z90.2 Acquired absence of lung [part of]; Z92.21 Personal history of antineoplastic chemotherapy; Z92.3 Personal history of irradiation
CPT/HCPCS: 10030; 36415; 36600; 43235; 43273; 43276; 71045; 74176; 74183; 74328; 74330; 77012; 80048; 80053; 80061; 80076; 80202; 81001; 82140; 82150; 82270; 82330; 82435; 82550; 82803; 82947; 82948; 82977; 83036; 83540; 83550; 83605; 83690; 83735; 83874; 83880; 84100; 84132; 84145; 84295; 84484; 85007; 85014; 85018; 85025; 85027; 85384; 85610; 85730; 86850; 86900; 86901; 86923; 87040; 87071; 87077; 87088; 87186; 87205; 87635; 87804; 87880; 92610; 93005; 93306; 93356; 94640; 94664; 97039; A4606; C1769; C1773; C1894; C9113; G0378; J0330; J0696; J0878; J1100; J1170; J1450; J1610; J1815; J1940; J2020; J2185; J2250; J2370; J2405; J2550; J2704; J2997; J3010; J3370; J3430; J3475; J3480; J3490; J7030; J7050; P9016; P9034; P9046; P9047; Q9967